=== PATIENT | female | born 1980 | race Caucasian/White ===

== ENCOUNTER 2020-07-03 22:23 | Emergency (ER) | payer OTHER ==
--- NOTE | 2020-07-04 00:03 | ER ---
Nurse's Notes [facility] Name: Pam Restrepo Age: 39 yrs Sex: Female : 1980 Arrival Date: 07/03/2020 Time: 22:25 Bed Waiting Private MD: Diagnosis: Presentation: 07/03 22:42 Chief complaint: Patient states: RLQ abdominal pain that began suddenly this afternoon, lp1 intermittent; Denies pain with urination. Initial Sepsis Screen: Does the patient meet any 2 criteria? No. Patient's initial sepsis screen is negative. Does the patient have a suspected source of infection? No. Patient's initial sepsis screen is negative. Risk Assessment: Do you want to hurt yourself or someone else? Patient reports no desire to harm self or others. 22:42 Method Of Arrival: Ambulatory lp1 22:42 Acuity: KRISTEN 3 lp1 22:44 Coronavirus screen: Client denies travel out of the [place] in the last 14 days. At this lp1 time, the client does not indicate any symptoms associated with coronavirus-19. Ebola Screen: No symptoms or risks identified at this time. Onset of symptoms was July 03, 2020 at 14:00. 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 - Social history:: Smoking status: Patient reports the use of cigarette tobacco products, smokes one-half pack cigarettes per day. Screenin:44 Abuse screen: Denies threats or abuse. Denies injuries from another. Nutritional lp1 screening: No deficits noted. Tuberculosis screening: No symptoms or risk factors identified. Vital Signs: 22:44 BP 173 / 124; Pulse 18; Resp 18; Temp 98.9(O); Pulse Ox 100% on R/A; Weight 79.38 kg lp1 (R); Height 5 ft. 8 in. (172.72 cm); Pain 8/10; 22:44 Body Mass Index 26.61 (79.38 kg, 172.72 cm) lp1 ED Course: 22:25 Patient arrived in ED. as 22:43 Triage completed. lp1 23:20 Patient's name was called from ER lobby. No response. lp1 07/04 00:01 Patient's name was called from ER lobby. Unable to locate patient. Will disposition as lp1 left without being seen by a provider. Administered Medications: No medications were administered Outcome: 00:02 Patient left the ED. lp1 Signatures: Jie Song Laura RN RN lp1 Corrections: (The following items were deleted from the chart) 07/03 23:28 23:20 Patient's name was called from ER lobby. Unable to locate patient. Will lp1 disposition as left without being seen by a provider. lp1
[2020-07-04 00:24] VITALS: BP 173/124; TEMP 98.9; O2SAT 100
== END 2020-07-04 00:02 | disposition left against medical advice (07) ==
LOC: ER 22:23
DX: Z53.21 Procedure and treatment not carried out due to patient leaving prior to being seen by health care provider (principal)
CPT/HCPCS: 99281

== ENCOUNTER 2021-04-12 08:24 | Emergency (ER) | payer OTHER ==
--- NOTE | 2021-04-12 09:57 | RAD REPORT ---
EXAM DESCRIPTION: RAD - Scapula Left - 04/12/2021 9:42 am CLINICAL HISTORY: PAIN, fall, shoulder and scapula pain is COMPARISON: Shoulder Left 2 View dated 04/12/2021 FINDINGS: No scapula fracture identifiable. No dislocation of the humeral head. No rib or upper lung parenchymal abnormality seen. IMPRESSION: Unremarkable left scapula exam
--- NOTE | 2021-04-12 09:58 | RAD REPORT ---
EXAM DESCRIPTION: RAD - Wrist Left 2 View - 04/12/2021 9:42 am CLINICAL HISTORY: Slip and fall, wrist pain COMPARISON: None. FINDINGS: Fracture of the distal radius is present without significant angulation deformity. No ulna fracture seen. There is no dislocation or periosteal reaction noted. No other significant bony finding. No foreign b omar or other soft tissue abnormality. IMPRESSION: Buckle fracture distal left radius.
--- NOTE | 2021-04-12 09:58 | RAD REPORT ---
EXAM DESCRIPTION: RAD - Elbow Left 3 View - 04/12/2021 9:42 am CLINICAL HISTORY: PAIN, slip and fall COMPARISON: None. FINDINGS: No fracture is identified and no elevated posterior fat pad. There is no dislocation or pe riosteal reaction noted. No foreign body or other soft tissue abnormality. IMPRESSION: Negative left elbow examination.
--- NOTE | 2021-04-12 10:01 | RAD REPORT ---
EXAM DESCRIPTION: RAD - Femur Left - 04/12/2021 9:43 am CLINICAL HISTORY: PAIN, slip and fall COMPARISON: None. FINDINGS: No fracture is identified. There is no dislocation or periosteal reaction noted. No acute or suspicious bony finding. No air or foreign body in the soft tissues. IMPRESSION: Negative left femur examination.
--- NOTE | 2021-04-12 10:01 | RAD REPORT ---
EXAM DESCRIPTION: RAD - Pelvis - 04/12/2021 9:42 am CLINICAL HISTORY: BLUNT TRAUMA COMPARISON: No comparisonsNone. TECHNIQUE: AP imaging of the pelvis was obtained. FINDINGS: No fracture of the bony pelvis. No fracture, dislocation or other acute hip joint finding. No significant SI joint findings. Mild degenerative change present at the pubic symphysis. No soft tissue abnormality. IMPRESSION: Negative pelvis for acute or significant findings.
--- NOTE | 2021-04-12 10:04 | RAD REPORT ---
EXAM DESCRIPTION: RAD - Thoracic Spine Ap/Lat - 04/12/2021 9:42 am CLINICAL HISTORY: PAIN, slip and fall with COMPARISON: No comparisons FINDINGS: AP & lateral views of the thoracic spine were obtained. There is subtle height loss along the right lateral aspect of the T9 body. Thoracic vertebrae are oth erwise normal in height. No alignment abnormality or subluxation finding. No destructive process seen . No disc space narrowing. No paraspinal masses are identified. Mild endplate spurring changes are present in the upper and mid portions of the thoracic spine. IMPRESSION: Subtle or minimal height loss along the right lateral margin of the T9 body. Correlation is needed with any pain symptoms in this region. Minimal compression fracture is possible though findings may still be within normal range for this patient.
--- NOTE | 2021-04-12 10:18 | RAD REPORT ---
EXAM DESCRIPTION: RAD - Shoulder Left 2 View - 04/12/2021 9:42 am CLINICAL HISTORY: PAIN, slip and fall COMPARISON: No comparisons TECHNIQUE: Internal and external rotation views of the left shoulder were obtained. FINDINGS: There is no fracture or dislocation. AC joint is normal in appearance. No acute or suspici ous findings. IMPRESSION: Negative two-view left shoulder examination for acute findings.
--- NOTE | 2021-04-12 10:51 | EDPHYS ---
Physician Documentation [facility] Name: Pam Restrepo Age: 40 yrs Sex: Female : 1980 Arrival Date: 04/12/2021 Time: 08:30 Bed 16 Private MD: ED Physician Vignesh Moreno HPI: 04/12 09:09 This 40 yrs old Female presents to ER via Ambulatory with complaints of Fall rn Injury, Arm Pain, left side pain. 09:09 Details of fall: The patient fell from an upright position, while standing. Onset: The rn symptoms/episode began/occurred just prior to arrival. Associated injuries: The patient sustained upper back injury, Left arm pain, left leg pain, shoulder pain, scapula pain, mid back pain.. Severity of symptoms: At their worst the symptoms were mild, in the emergency department the symptoms are unchanged. The patient has not experienced similar symptoms in the past. Reports got out of SUV, slipped on water, landed on right side, reports pain to left arm/left leg/left buttocks/mid back/left shoulder blade/left elbow. Doesn't feel like anything broken but not sure so came for eval. . 09:09 Did not hit head or LOC.. 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 - Social history:: Smoking status: Patient reports the use of cigarette tobacco products, smokes one-half pack cigarettes per day. - Family history:: not pertinent. - Hospitalizations: : No recent hospitalization is reported. ROS: 09:09 Constitutional: Negative for fever, chills, and weight loss, Eyes: Negative for injury, rn pain, redness, and discharge, Neck: Negative for injury, pain, and swelling, Cardiovascular: Negative for chest pain, palpitations, and edema, Respiratory: Negative for shortness of breath, cough, wheezing, and pleuritic chest pain, Abdomen/GI: Negative for abdominal pain, nausea, vomiting, diarrhea, and constipation, Back: + mid back pain MS/Extremity: + left arm and leg pain Skin: Negative for injury, rash, and discoloration, Neuro: Negative for headache, weakness, numbness, tingling, and seizure. Exam: 09:09 Constitutional: This is a well developed, well nourished patient who is awake, alert, rn and in no acute distress. Ambulatory to room without difficulty. Head/Face: Normocephalic, atraumatic. Neck: No midline cervical tenderness Chest/axilla: Nontender with no deformity. Cardiovascular: Regular rate and rhythm. No pulse deficits. Respiratory: No increased work of breathing, no retractions or nasal flaring. Back: + mid thoracic perispinal tenderness, no stepoff Skin: Warm, dry with normal turgor. Normal color with no rashes, no lesions, and no evidence of cellulitis. MS/ Extremity: Pulses equal, no cyanosis. Neurovascular intact. Full, normal range of motion. Equal circumference. Mild painful ROM left elbow, + tenderness left scapula without crepitus or mobile segments. Neuro: Awake and alert, GCS 15, oriented to person, place, time, and situation. Cranial nerves II-XII grossly intact. Motor strength 5/5 in all extremities. Sensory grossly intact. Cerebellar exam normal. Normal gait. Vital Signs: 08:38 BP 175 / 109; Pulse 113; Resp 20 S; Temp 98.7(O); Pulse Ox 99% on R/A; Weight 86.18 kg aa5 (R); Height 5 ft. 8 in. (172.72 cm) (R); 08:38 Body Mass Index 28.89 (86.18 kg, 172.72 cm) aa5 MDM: 08:42 Patient medically screened. rn 10:47 Differential diagnosis: contusion, fracture, multiple trauma, sprain, strain. Data rn reviewed: vital signs, nurses notes, radiologic studies, plain films, and as a result, I will discharge patient. Counseling: I had a detailed discussion with the patient and/or guardian regarding: the historical points, exam findings, and any diagnostic results supporting the discharge/admit diagnosis, radiology results, the need for outpatient follow up, to return to the emergency department if symptoms worsen or persist or if there are any questions or concerns that arise at home. Response to treatment: the patient's symptoms have mildly improved after treatment, and as a result, I will discharge patient. Special discussion: I discussed with the patient/guardian in detail that at this point there is no indication for admission to the hospital. It is understood, however, that if the symptoms persist or worsen the patient needs to return immediately for re-evaluation. Based on the history and exam findings, there is no indication for further emergent testing or inpatient evaluation. I discussed with the patient/guardian the need to see the orthopedic surgeon for further evaluation of the symptoms. ED course: Xrays show possible buckle fracture distal left radius and possible slight compression fracture T9, otherwise rest of plain films negative, both non-operative, will place in stiff wrist brace for buckle fracture, and recommend ortho f/u.. 04/12 08:51 Order name: XRAY Pelvis rn 04/12 08:51 Order name: XRAY Femur LEFT rn 04/12 08:51 Order name: XRAY Elbow LEFT 3 view rn 04/12 08:51 Order name: XRAY Wrist LEFT 2 view rn 04/12 08:51 Order name: XRAY Scapula LEFT rn 04/12 08:51 Order name: XRAY Shoulder LEFT 2 view rn 04/12 08:51 Order name: XRAY Thoracic Spine (Ap/lat) rn 04/12 09:58 Order name: RAD; Complete Time: 10:43 EDMS 04/12 09:59 Order name: RAD; Complete Time: 10:43 EDMS 04/12 09:59 Order name: RAD; Complete Time: 10:43 EDMS 04/12 10:01 Order name: RAD; Complete Time: 10:43 EDMS 04/12 10:02 Order name: RAD; Complete Time: 10:43 EDMS 04/12 10:04 Order name: RAD; Complete Time: 10:43 EDMS 04/12 10:19 Order name: RAD; Complete Time: 10:43 EDMS 04/12 10:51 Order name: Wrist Splint: velcro wrist brace - left; Complete Time: 10:53 rn Administered Medications: No medications were administered Disposition: 04/12/21 10:50 Discharged to Home. Impression: Acute, closed, distal radius buckle fracture - left, Wedge compression fracture of T9-T10 vertebra. - Condition is Stable. - Discharge Instructions: Spinal Compression Fracture, Wrist Fracture Treated With Immobilization. - Medication Reconciliation Form, Thank You Letter, Antibiotic Education, Prescription Opioid Use form. - Follow up: Mal Anders MD; When: As needed; Reason: Recheck today's complaints, Re-evaluation by your physician. - Problem is new. - Symptoms have improved. Signatures: Dispatcher [employer] EDVignesh Melgar MD MD rn Calderon, Audri, RN RN aa5 Corrections: (The following items were deleted from the chart) 11:12 10:50 04/12/2021 10:50 Discharged to Home. Impression: Acute, closed, distal radius aa5 buckle fracture - left; Wedge compression fracture of T9-T10 vertebra. Condition is Stable. Forms are Medication Reconciliation Form, Thank You Letter, Antibiotic Education, Prescription Opioid Use. Follow up: Mal Anders; When: As needed; Reason: Recheck today's complaints, Re-evaluation by your physician. Problem is new. Symptoms have improved. rn
--- NOTE | 2021-04-12 10:51 | ER ---
Nurse's Notes [facility] Name: Pam Restrepo Age: 40 yrs Sex: Female : 1980 Arrival Date: 04/12/2021 Time: 08:30 Bed 16 Private MD: Diagnosis: Acute, closed, distal radius buckle fracture - left;Wedge compression fracture of T9-T10 vertebra Presentation: 04/12 08:38 Chief complaint: Patient states: "I was getting out of my car and I slipped and fell aa5 right onto my left side. Pt c/o pain to left arm, left knee, and left buttocks. Coronavirus screen: At this time, the client does not indicate any symptoms associated with coronavirus-19. Ebola Screen: Patient negative for fever greater than or equal to 101.5 degrees Fahrenheit, and additional compatible Ebola Virus Disease symptoms. Initial Sepsis Screen: Does the patient meet any 2 criteria? No. Patient's initial sepsis screen is negative. Initial Sepsis Screen: Does the patient meet any 2 criteria? HR > 90 bpm. Does the patient have a suspected source of infection? No. Patient's initial sepsis screen is negative. Risk Assessment: Do you want to hurt yourself or someone else? Patient reports no desire to harm self or others. Onset of symptoms was April 12, 2021. 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 - Social history:: Smoking status: Patient reports the use of cigarette tobacco products, smokes one-half pack cigarettes per day. - Family history:: not pertinent. - Hospitalizations: : No recent hospitalization is reported. Screenin:40 Abuse screen: Denies threats or abuse. Nutritional screening: No deficits noted. aa5 Tuberculosis screening: No symptoms or risk factors identified. Fall Risk None identified. Assessment: 08:41 General: Appears uncomfortable, Behavior is calm, cooperative. Pain: Complains of pain aa5 in left arm, left buttocks, and left knee Pain currently is 8 out of 10 on a pain scale. Quality of pain is described as aching, sharp, shooting, Pain began post fall Is continuous, Aggravated by repositioning. Neuro: Level of Consciousness is awake, alert, obeys commands, Oriented to person, place, time, situation. Cardiovascular: Patient's skin is warm and dry. Respiratory: Airway is patent Respiratory effort is even, unlabored, Respiratory pattern is regular, symmetrical. GI: No signs and/or symptoms were reported involving the gastrointestinal system. : No signs and/or symptoms were reported regarding the genitourinary system. EENT: No signs and/or symptoms were reported regarding the EENT system. Derm: Skin is pink, warm \\T\\ dry. Musculoskeletal: Reports pain in left arm and left knee. 11:10 Reassessment: Patient is alert, oriented x 3, equal unlabored respirations, skin aa5 warm/dry/pink. Vital Signs: 08:38 BP 175 / 109; Pulse 113; Resp 20 S; Temp 98.7(O); Pulse Ox 99% on R/A; Weight 86.18 kg aa5 (R); Height 5 ft. 8 in. (172.72 cm) (R); 08:38 Body Mass Index 28.89 (86.18 kg, 172.72 cm) aa5 ED Course: 08:30 Patient arrived in ED. am2 08:38 Arm band placed on. aa5 08:38 Patient has correct armband on for positive identification. aa5 08:39 Triage completed. aa5 08:41 Milagro Bullock, MAURICIO is Primary Nurse. aa5 08:42 Vignesh Moreno MD is Attending Physician. rn 10:49 Mal Anders MD is Referral Physician. rn 10:53 Velcro wrist splint applied to left wrist. mt 11:10 No provider procedures requiring assistance completed. Patient did not have IV access aa5 during this emergency room visit. Administered Medications: No medications were administered Outcome: 10:50 Discharge ordered by MD. rn 11:10 Discharged to home ambulatory. aa5 11:10 Condition: stable 11:10 Discharge instructions given to patient, Instructed on discharge instructions, follow up and referral plans. medication usage, Demonstrated understanding of instructions, follow-up care. 11:12 Patient left the ED. aa5 Signatures: Vignesh Moreno MD MD rn Milagro Bullock RN RN aa5 Helga Kauffman Moriah nm
[2021-04-12 11:19] VITALS: BP 175/109; TEMP 98.7; O2SAT 99
== END 2021-04-12 11:12 | disposition home or self-care (01) ==
LOC: ER 08:24
PROC: 2W3DX1Z Immobilization of Left Lower Arm using Splint (ICD-10-PCS; principal; 2021-04-12)
DX: S52.522A Torus fracture of lower end of left radius, initial encounter for closed fracture (principal); S22.070A Wedge compression fracture of T9-T10 vertebra, initial encounter for closed fracture; F17.210 Nicotine dependence, cigarettes, uncomplicated; W01.0XXA Fall on same level from slipping, tripping and stumbling without subsequent striking against object, initial encounter; Y93.89 Activity, other specified
CPT/HCPCS: 72070; 72170; 73010; 99283

== ENCOUNTER 2021-06-27 10:43 | Emergency (ER) | payer OTHER ==
--- OUTSIDE RECORDS SUMMARY | 2021-06-27 10:52 | XMS REPORT | Continuity of Care Document ---
:1980 Author Organization [facility] t Address [address] [place] [address] Care Team Providers Name Role Phone Maurice Burden Attending Clinician Problems This patient has no known problems. Allergies, Adverse Reactions, Alerts This patient has no known allergies or adverse reactions. Medications This patient has no known medications. Procedures This patient has no known procedures. Encounters Start End Encounter Admission Attending Care Care Encounter Source Date/Time Date/Time Type Type Clinicians Facility Department ID 2021-04-21 2021-04-21 [facility] [id number] 09:56:50 23:59:00 Encounter Bernardo Decker [id number] [place] [id number] [place] [id number] 2021-04-21 2021-04-21 Office [facility] [id number] 08:27:38 08:42:38 Visit [facility] [id number] Surgical [id number] [facility] [id number] [place] Results This patient has no known results.
--- NOTE | 2021-06-27 11:41 | ER ---
Nurse's Notes [facility] Name: Pam Restrepo Age: 40 yrs Sex: Female : 1980 Arrival Date: 06/27/2021 Time: 10:46 Bed Waiting Private MD: Diagnosis: ED Course: 06/27 10:46 Patient arrived in ED. mr Administered Medications: No medications were administered Outcome: 11:40 Patient left the ED. iw Signatures: Myrtle Gilmore Irene, RN RN iw
== END 2021-06-27 11:40 | disposition left against medical advice (07) ==
LOC: ER 10:43
DX: Z02.9 Encounter for administrative examinations, unspecified (principal)

== ENCOUNTER 2021-08-13 15:51 | Emergency (ER) | payer OTHER ==
[2021-08-13 16:43] LABS: Urine Blood Negative (Negative); Urine Glucose Negative (Negative); Urine Protein 1+ (Negative); Urine Specific Gravity >=1.030 (1.005-1.030); Urine pH 5.5 (5.0-7.0)
[2021-08-13] MEDS ORDERED: MORPHINE 4 MG/ML SYR ONE (16:51)
[2021-08-13] MEDS ORDERED: ONDANSETRON 4 MG/2 ML VIAL ONE (16:51)
[2021-08-13] MEDS ORDERED: NA CHLORIDE 0.9% 1,000 ML ONE (16:51)
[2021-08-13 17:08] LABS: Absolute Lymphocytes (CBC) 1.3 K/uL (0.7-4.9); Basophils % 2.1 % (0-1.3); Hematocrit 37.8 % (36.0-45.0); Lymphocytes % 35.6 % (15.3-44.8); MPV 7.1 fL (7.6-11.3); RBC Red Blood Cell Count 3.99 M/uL (3.86-4.86)
[2021-08-13 17:23] LABS: Albumin 4.2 g/dL (3.4-5.0); Bilirubin Direct 0.2 mg/dL (0-0.2); Bilirubin Total 0.6 mg/dL (0.2-1.0); Potassium 4.1 mmol/L (3.5-5.1)
--- NOTE | 2021-08-13 17:31 | RAD REPORT ---
EXAM DESCRIPTION: CT - Abdomen Pelvis W Contrast - 08/13/2021 5:12 pm CLINICAL HISTORY: Abdominal pain COMPARISON: none. TECHNIQUE: Computed axial tomography of the abdomen pelvis was obtained. 100 cc Isovue-300 was admin istered intravenously. Oral contrast was not requested which limits evaluation of bowel. All CT scans are performed using dose optimization technique as appropriate and may include automated exposure control or mA/KV adjustment according to patient size. FINDINGS: Fatty liver. 13 millimeter enhancing lesion anterior segment right lobe. A moderate hiatal hernia. Wall of the distal stomach appears thickened. Spleen, pancreas, adrenal and kidneys appear unremarkable. There is no evidence of diverticulitis. No adnexal mass IMPRESSION: Fatty liver 13 millimeter hepatic lesion it is nonspecific. Nonemergent liver ultrasound recommended for further evaluation Apparent thickening of the wall of the distal stomach may be secondary to incomplete distention or pa thology such as inflammation
--- NOTE | 2021-08-13 18:02 | EDPHYS ---
Physician Documentation [facility] Name: aPm Restrepo Age: 40 yrs Sex: Female : 1980 Arrival Date: 08/13/2021 Time: 15:55 Bed 15 Private MD: Kirk [facility] ED Physician Justo Lay HPI: 08/13 16:44 This 40 yrs old Female presents to ER via Ambulatory with complaints of kb Vomiting - blood. 16:44 The patient presents to the emergency department with nausea, vomiting, abdominal pain. kb Onset: The symptoms/episode began/occurred 1 month(s) ago, and became worse today. Possible causes: unknown. The symptoms are aggravated by nothing. The symptoms are alleviated by nothing. Associated signs and symptoms: Pertinent positives: abdominal pain, GI bleeding, nausea, vomiting. Severity of symptoms: At their worst the symptoms were moderate in the emergency department the symptoms are unchanged. The patient has not experienced similar symptoms in the past. The patient has been recently seen by a physician: the patient's primary care provider. Pt reports she has had vomiting for over a month. States there was blood in it today which prompted her ER visit. States she has also had blood in her stool for about [address] Bradley for this and is supposed to follow up with GI for upper GI, but hasn't been able to schedule that yet. States she used to drink 1 handle of rum every 2 days, now a handle lasts 4-5 days. States "I drink so I don't go through withdrawals." Pt hasn't had this problem in the past. Historical: - Allergies: 15:58 No Known Allergies; aa5 - Home Meds: 15:58 Cymbalta Oral [Active]; aa5 - PMHx: 15:58 Acid Reflux; Anxiety; aa5 - PSHx: 15:58 Appendectomy; aa5 - Immunization history:: Client reports receiving the 2nd dose of the Covid vaccine. - Social history:: Smoking status: Patient reports the use of cigarette tobacco products, 1-2 cigarette . ROS: 16:43 Cardiovascular: Negative for chest pain, palpitations, and edema. kb 16:43 Constitutional: Positive for malaise. 16:43 Abdomen/GI: Positive for abdominal pain, nausea and vomiting, hematemesis, rectal bleeding. 16:43 All other systems are negative. Exam: 16:43 Constitutional: This is a well developed, well nourished patient who is awake, alert, kb and in no acute distress. Head/Face: Normocephalic, atraumatic. ENT: Moist Mucous membranes Cardiovascular: Regular rate and rhythm with a normal S1 and S2. No gallops, murmurs, or rubs. No pulse deficits. Respiratory: Respirations even and unlabored. No increased work of breathing, no retractions or nasal flaring. Skin: Warm, dry with normal turgor. Normal color. MS/ Extremity: Pulses equal, no cyanosis. Neurovascular intact. Full, normal range of motion. Neuro: Awake and alert, GCS 15, oriented to person, place, time, and situation. Moves all extremities. Normal gait. Psych: Awake, alert, with orientation to person, place and time. Behavior, mood, and affect are within normal limits. 16:43 Abdomen/GI: Inspection: abdomen appears normal, Palpation: soft, in all quadrants, mild abdominal tenderness, in the left upper quadrant, moderate abdominal tenderness, in the right lower quadrant. Vital Signs: 16:01 BP 142 / 110; Pulse 116; Resp 16 S; Temp 97.0(TE); Pulse Ox 97% on R/A; Weight 86.18 kg aa5 (R); Height 5 ft. 7 in. (170.18 cm) (R); 16:18 BP 134 / 97 Supine; Pulse 103; Resp 16; Pulse Ox 97% ; bp 16:20 BP 135 / 108 Sitting; Pulse 100; Resp 16; Pulse Ox 100% ; bp 16:22 BP 122 / 93 Standing; Pulse 109; Resp 17; Pulse Ox 99% ; bp 17:20 BP 151 / 104; Pulse 100; Resp 17; Pulse Ox 99% ; bp 16:01 Body Mass Index 29.76 (86.18 kg, 170.18 cm) aa5 MDM: 16:03 Patient medically screened. kb 16:42 Data reviewed: vital signs, nurses notes. Data interpreted: Pulse oximetry: on room air kb is 97 %. Interpretation: normal. 17:59 Counseling: I had a detailed discussion with the patient and/or guardian regarding: the kb historical points, exam findings, and any diagnostic results supporting the discharge/admit diagnosis, lab results, radiology results, the need for outpatient follow up, a obiee consultant, to return to the emergency department if symptoms worsen or persist or if there are any questions or concerns that arise at home. ED course: Discussed diagnostics with pt and mother. Will call Dr Munoz's office for follow up on Saturday. Will return for worsening symptoms. 08/13 16:03 Order name: Basic Metabolic Panel; Complete Time: 17:24 kb 08/13 16:03 Order name: CBC with Diff kb 08/13 16:03 Order name: Hepatic Function; Complete Time: 17:24 kb 08/13 16:03 Order name: Lipase; Complete Time: 17:24 kb 08/13 16:11 Order name: CT Abd/Pelvis - IV Contrast Only; Complete Time: 17:44 kb 08/13 16:43 Order name: Urine Dipstick-Ancillary; Complete Time: 16:46 EDMS 08/13 16:43 Order name: Urine --Ancillary (enter results) eb 08/13 16:44 Order name: Urine --Ancillary; Complete Time: 16:56 EDMS 08/13 16:03 Order name: IV Saline Lock; Complete Time: 17:23 kb 08/13 16:03 Order name: Labs collected and sent; Complete Time: 17:23 kb 08/13 16:11 Order name: Orthostatics; Complete Time: 16:57 kb Administered Medications: 16:45 Drug: ProTONIX (pantoprazole) 40 mg Route: IVP; Site: right forearm; bp 17:24 Follow up: Response: No adverse reaction bp 16:50 Drug: NS 0.9% 1000 ml Route: IV; Rate: 1000 ml; Site: right forearm; bp 18:25 Follow up: IV Status: Completed infusion; IV Intake: 1000ml bp 16:50 Drug: Zofran (Ondansetron) 4 mg Route: IVP; Site: right forearm; bp 17:23 Follow up: Response: No adverse reaction bp 16:50 Drug: morphine 4 mg Route: IVP; Site: right forearm; bp 17:22 Follow up: Response: Pain is decreased bp Disposition: 08/14 10:02 Co-signature as Attending Physician, Justo Lay MD I agree with the assessment and flash plan of care. Disposition Summary: 08/13/21 18:01 Discharge Ordered Location: Home kb Condition: Stable kb Diagnosis - Abdominal pain, Generalized kb - Nausea with vomiting, unspecified kb - Abnormal results of liver function studies kb - Fatty (change of) liver, not elsewhere classified kb Followup: kb - With: Emergency Department - When: As needed - Reason: Worsening of condition Followup: kb - With: James Munoz MD - When: 1 - 2 days - Reason: Recheck today's complaints Discharge Instructions: - Discharge Summary Sheet kb - Nausea and Vomiting, Adult, [id number] kb - Abdominal Pain, Adult, [id number] kb - Fatty Liver Disease kb Forms: - Medication Reconciliation Form kb - Thank You Letter kb - Antibiotic Education kb - Prescription Opioid Use kb Prescriptions: - Protonix 40 mg Oral Tablet - take 1 tablet by ORAL route once daily; 30 tablet; Refills: 0, Product kb Selection Permitted - Zofran 4 mg Oral Tablet - take 1 tablet by ORAL route every 6 hours As needed; 20 tablet; Refills: 0, kb Product Selection Permitted Signatures: Dispatcher [employer] Abbie Tolliver, FACILITY ADMINISTRATOR-C FACILITY ADMINISTRATOR-Justo Stevenson MD MD cha Calderon, Audri, RN RN aa5 Eleuterio Ryan, RN RN bp Corrections: (The following items were deleted from the chart) 08/13 16:13 16:12 TYPE AND SCREEN+[id number].BRZ ordered. [facility]
--- NOTE | 2021-08-13 18:02 | ER ---
Nurse's Notes [facility] Name: Pam Restrepo Age: 40 yrs Sex: Female : 1980 Arrival Date: 08/13/2021 Time: 15:55 Bed 15 Private MD: Clyde Bradley Diagnosis: Abdominal pain, Generalized;Nausea with vomiting, unspecified;Abnormal results of liver function studies;Fatty (change of) liver, not elsewhere classified Presentation: 08/13 16:00 Chief complaint: Patient states: vomiting bright red blood, diarrhea, and headache that aa5 began yesterday. Coronavirus screen: At this time, the client does not indicate any symptoms associated with coronavirus-19. Ebola Screen: Patient negative for fever greater than or equal to 101.5 degrees Fahrenheit, and additional compatible Ebola Virus Disease symptoms. Initial Sepsis Screen: Does the patient meet any 2 criteria? HR > 90 bpm. Does the patient have a suspected source of infection? No. Patient's initial sepsis screen is negative. Risk Assessment: Do you want to hurt yourself or someone else? Patient reports no desire to harm self or others. Onset of symptoms was July 2021. 16:00 Method Of Arrival: Ambulatory aa5 16:00 Acuity: KRISTEN 3 aa5 Triage Assessment: 16:00 General: Appears distressed, uncomfortable, Behavior is cooperative, appropriate for bp age, anxious. Pain: Complains of pain in abdomen. EENT: No deficits noted. Neuro: No deficits noted. Cardiovascular: No deficits noted. Respiratory: No deficits noted. GI: Reports nausea, vomiting. : No signs and/or symptoms were reported regarding the genitourinary system. Derm: No deficits noted. Musculoskeletal: No deficits noted. Historical: - Allergies: 15:58 No Known Allergies; aa5 - Home Meds: 15:58 Cymbalta Oral [Active]; aa5 - PMHx: 15:58 Acid Reflux; Anxiety; aa5 - PSHx: 15:58 Appendectomy; aa5 - Immunization history:: Client reports receiving the 2nd dose of the Covid vaccine. - Social history:: Smoking status: Patient reports the use of cigarette tobacco products, 1-2 cigarette . Screenin:17 Abuse screen: Denies threats or abuse. Denies injuries from another. Nutritional bp screening: No deficits noted. Tuberculosis screening: No symptoms or risk factors identified. Fall Risk None identified. Assessment: 16:00 General: SEE TRIAGE NOTE. bp 17:17 Reassessment: PT RETURNED FROM CT. GI: Abdomen is non-distended. bp 18:23 Reassessment: PT D/C HOME AMBULATORY WITH FAMILY, DX WITH NONSPECIFIC ABDOMINAL PAIN. bp Vital Signs: 16:01 BP 142 / 110; Pulse 116; Resp 16 S; Temp 97.0(TE); Pulse Ox 97% on R/A; Weight 86.18 kg aa5 (R); Height 5 ft. 7 in. (170.18 cm) (R); 16:18 BP 134 / 97 Supine; Pulse 103; Resp 16; Pulse Ox 97% ; bp 16:20 BP 135 / 108 Sitting; Pulse 100; Resp 16; Pulse Ox 100% ; bp 16:22 BP 122 / 93 Standing; Pulse 109; Resp 17; Pulse Ox 99% ; bp 17:20 BP 151 / 104; Pulse 100; Resp 17; Pulse Ox 99% ; bp 16:01 Body Mass Index 29.76 (86.18 kg, 170.18 cm) aa5 ED Course: 15:55 Patient arrived in ED. am2 15:55 Clyde Bradley, DO is Private Physician. am2 15:58 Arm band placed on. aa5 16:01 Triage completed. aa5 16:03 Abbie Varner FNP-C [facility]. kb 16:03 Justo Lay MD is Attending Physician. kb 16:13 Eleuterio Ryan, MAURICIO is Primary Nurse. bp 16:17 Patient has correct armband on for positive identification. Bed in low position. Call bp light in reach. Side rails up X2. 16:50 Inserted saline lock: 20 gauge in right forearm, using aseptic technique. Blood bp collected. 17:12 CT Abd/Pelvis - IV Contrast Only In Process Unspecified. EDMS 18:00 James Munoz MD is Referral Physician. kb 18:23 No provider procedures requiring assistance completed. IV discontinued, intact, bp bleeding controlled, No redness/swelling at site. Pressure dressing applied. Administered Medications: 16:45 Drug: ProTONIX (pantoprazole) 40 mg Route: IVP; Site: right forearm; bp 17:24 Follow up: Response: No adverse reaction bp 16:50 Drug: NS 0.9% 1000 ml Route: IV; Rate: 1000 ml; Site: right forearm; bp 18:25 Follow up: IV Status: Completed infusion; IV Intake: 1000ml bp 16:50 Drug: Zofran (Ondansetron) 4 mg Route: IVP; Site: right forearm; bp 17:23 Follow up: Response: No adverse reaction bp 16:50 Drug: morphine 4 mg Route: IVP; Site: right forearm; bp 17:22 Follow up: Response: Pain is decreased bp Intake: 18:25 IV: 1000ml; Total: 1000ml. bp Outcome: 18:01 Discharge ordered by . gemma 18:23 Discharged to home ambulatory, with family. bp 18:23 Condition: stable 18:23 Discharge instructions given to patient, Instructed on discharge instructions, follow up and referral plans. medication usage, Demonstrated understanding of instructions, follow-up care, medications, Prescriptions given X 2. 18:25 Patient left the ED. bp Signatures: Dispatcher [employer] EDMS Abbie Varner, WIL-C BD SPECIAL EDUCATION TEACHER-Milagro Pulido, RN RN erin5 Helga Kauffman am2 Eleuterio Ryan, RN RN bp
[2021-08-13 18:32] VITALS: TEMP 97
[2021-08-13 18:36] VITALS: O2SAT 99
[2021-08-13 18:37] VITALS: BP 151/104
[2021-08-13 19:38] LABS: Anisocytosis 2+; Blood Morphology Comment NOTED (NOT SEEN); Platelet Estimate ADEQ; Polychromasia 1+; White Blood Cell Scan OK (OK)
== END 2021-08-13 18:25 | disposition home or self-care (01) ==
LOC: ER 15:51
DX: R10.84 Generalized abdominal pain (principal); R94.5 Abnormal results of liver function studies; K76.0 Fatty (change of) liver, not elsewhere classified; F17.210 Nicotine dependence, cigarettes, uncomplicated
CPT/HCPCS: 96361; 85025; 80048; 36415; 81025; 82565; 80076; 81003; 83690; 74177; 96375; 96374; 99284; Q9967; J7030; J2405

== ENCOUNTER 2021-08-21 19:26 | Inpatient (IN) | payer OTHER ==
[2021-08-21 20:15] LABS: Absolute Lymphocytes (CBC) 1.2 K/uL (0.7-4.9); Basophils % 0.4 % (0-1.3); Hematocrit 35.9 % (36.0-45.0); MPV 7.8 fL (7.6-11.3); RBC Red Blood Cell Count 3.72 M/uL (3.86-4.86)
[2021-08-21 20:30] LABS: Albumin 3.9 g/dL (3.4-5.0); Bilirubin Direct 0.4 mg/dL (0-0.2); Bilirubin Total 0.8 mg/dL (0.2-1.0); Potassium 4.1 mmol/L (3.5-5.1); Protein, Total 7.3 g/dL (6.4-8.2)
[2021-08-21] MEDS ORDERED: DIAZEPAM 10 MG/2 ML INJ SYRINGE ONE (20:39)
[2021-08-21] MEDS ORDERED: THIAMINE 200 MG/2 ML INJ ONE (20:39)
[2021-08-21] MEDS ORDERED: ONDANSETRON 4 MG/2 ML VIAL ONE (20:39)
[2021-08-21] MEDS ORDERED: MULTIVITAMINS 10 ML VIAL (INJ) IV ONE (20:40)
[2021-08-21] MEDS ORDERED: PANTOPRAZOLE 40 MG INJ ONE (20:40)
[2021-08-21] MEDS ORDERED: FOLIC ACID 5 MG/ML VIAL ONE (20:42)
[2021-08-21] MEDS ORDERED: NA CHLORIDE 0.9% 2,000 ML ONE (20:42)
[2021-08-21 20:55] LABS: Anisocytosis 3+; Blood Morphology Comment NOTED (NOT SEEN); Macrocytosis 1+; Platelet Estimate ADEQ
--- NOTE | 2021-08-21 20:55 | RAD REPORT ---
EXAM DESCRIPTION: CTAbdomen Pelvis W Contrast - 08/21/2021 8:47 pm CLINICAL HISTORY: Abdominal pain. ABD PAIN COMPARISON: Abdomen Pelvis W Contrast dated 08/13/2021 TECHNIQUE: Biphasic CT imaging of the abdomen and pelvis was performed with 100 ml non-ionic IV cont rast. All CT scans are performed using dose optimization technique as appropriate and may include automated exposure control or mA/KV adjustment according to patient size. FINDINGS: The lung bases are clear.Moderate hiatal hernia. The liver demonstrates diffuse fatty infiltration. Spleen, pancreas, adrenal glands and kidneys are w ithin normal limits. No bowel obstruction, free air, free fluid or abscess. Moderate thickening and inflammation the trans verse colon and ascending colon is seen. Appendectomy. No evidence of significant lymphadenopathy. No suspicious bony findings. IMPRESSION: Moderate inflammatory changes involve transverse and ascending colon. This is compatible with moderate colitis. Diffuse fatty liver.
[2021-08-21] MEDS ORDERED: HYDROMORPHONE HCL 1 MG/ML INJ ONE (21:24)
[2021-08-21] MEDS ORDERED: METRONIDAZOLE 500mg IVPB 500 MG/100 ML BAG IV ONE (22:02)
[2021-08-21] MEDS ORDERED: CEFTRIAXONE 1000 MG/VIAL ONE (22:02)
--- NOTE | 2021-08-21 23:01 | ER ---
Nurse's Notes [facility] Name: Pam Restrepo Age: 40 yrs Sex: Female : 1980 Arrival Date: 08/21/2021 Time: 19:28 Bed 18 Private MD: Diagnosis: Tachycardia, unspecified;Alcohol dependence with withdrawal, uncomplicated;Infectious gastroenteritis and colitis, unspecified;Nausea with vomiting, unspecified Presentation: 08/21 19:46 Chief complaint: Patient states: Pt states she has had Right upper and lower quad wg abdominal pain for the past 2 weeks. Pt state she has had N/V/D for the past 2 weeks as well. Pt states she noticed coffee ground color in her stool over the past couple days. Pt states she is a heavy drinker and drinks 24oz of liquor daily. Coronavirus screen: Vaccine status: Patient reports receiving the 2nd dose of the covid vaccine. Date March 2021. Ebola Screen: Patient negative for fever greater than or equal to 101.5 degrees Fahrenheit, and additional compatible Ebola Virus Disease symptoms Patient denies exposure to infectious person. Patient denies travel to an Ebola-affected area in the 21 days before illness onset. No symptoms or risks identified at this time. Initial Sepsis Screen: Does the patient meet any 2 criteria? No. Patient's initial sepsis screen is negative. Does the patient have a suspected source of infection? No. Patient's initial sepsis screen is negative. Risk Assessment: Do you want to hurt yourself or someone else? Patient reports no desire to harm self or others. Onset of symptoms was July 31, 2021. 19:46 Method Of Arrival: Ambulatory wg 19:46 Acuity: KRISTEN 3 wg Triage Assessment: 19:50 General: Appears uncomfortable, well groomed, Behavior is calm, cooperative, anxious. wg Pain: Complains of pain in Right upper and lower abd. GI: Reports lower abdominal pain, upper abdominal pain, diarrhea, bloody stool, intolerance of fluids, intolerance of food, nausea, vomiting. REPORTER: 19:50 LMP 07/20/2021 wg Historical: - Allergies: 19:50 No Known Allergies; wg - Home Meds: 19:50 Cymbalta Oral [Active]; Nexium Oral [Active]; wg - PMHx: 19:50 acid reflux; Anxiety; wg - Immunization history:: Adult Immunizations up to date. - Social history:: Smoking status: Patient reports the use of cigarette tobacco products, denies chronic smoking, but will smoke occasionally, Patient uses alcohol, on a daily basis. . - Family history:: not pertinent. Screenin:03 Abuse screen: Denies threats or abuse. Denies injuries from another. Nutritional bc5 screening: No deficits noted. Tuberculosis screening: No symptoms or risk factors identified. Fall Risk None identified. No fall in past 12 months (0 pts). No secondary diagnosis (0 pts). IV access (20 points). Ambulatory Aid- None/Bed Rest/Nurse Assist (0 pts). Gait- Normal/Bed Rest/Wheelchair (0 pts) Mental Status- Oriented to own ability (0 pts). Total Roberson Fall Scale indicates No Risk (0-24 pts). Assessment: 20:05 GI: Abdomen is round non-distended. 5 21:00 Reassessment: Pt returned from CT. c/o right side abdominal and hip pain. Provider 5 aware, orders to follow. 08/22 00:39 Reassessment: Initial CIWA score of 5. 5 Vital Signs: 08/21 19:46 BP 144 / 101; Pulse 130; Resp 18; Temp 98.7; Pulse Ox 100% on R/A; Weight 88.45 kg; wg Height 5 ft. 8 in. (172.72 cm); Pain 8/10; 21:01 BP 130 / 30; Pulse 106; Resp 17; Pulse Ox 100% on R/A; Pain 8/10; bc5 23:40 BP 129 / 92; Pulse 139; Resp 17; Pulse Ox 99% on R/A; Pain 7/10; bc5 08/22 01:00 BP 111 / 74; Pulse 130; Resp 16; Pulse Ox 100% on R/A; Pain 0/10; bc5 08/23 19:50 BP 118 / 81; Pulse 109; Resp 18; Temp 98.6; Pulse Ox 93% ; Pain 6/10; bs2 08/21 19:46 Body Mass Index 29.65 (88.45 kg, 172.72 cm) ED Course: 08/21 19:28 Patient arrived in ED. wm 19:50 Triage completed. wg 19:50 Arm band placed on right wrist. wg 19:55 Radha Salvador MD is Attending Physician. ma2 20:03 Arely Hoskins, MAURICIO is Primary Nurse. bc5 20:05 Patient has correct armband on for positive identification. Placed in gown. Bed in low bc5 position. Call light in reach. Side rails up X2. Adult w/ patient. 20:05 No provider procedures requiring assistance completed. Inserted saline lock: 20 gauge bc5 in left antecubital area, using aseptic technique. 20:37 CT Abd/Pelvis - IV Contrast Only Sent. ms4 20:48 CT Abd/Pelvis - IV Contrast Only In Process Unspecified. EDIN 08/22 00:09 John Moreno MD is Hospitalizing Provider. ma2 00:23 COVID-19 : Document "Date of Symptom Onset" if Symptomatic. Sent. [facility] 08/23 09:38 Rashida Junior, MAURICIO is Primary Nurse. es2 19:49 Patient admitted, IV remains in place. bs2 Administered Medications: 08/21 20:37 Drug: NS 0.9% 1000 ml Route: IV; Rate: 1 bolus; Site: left antecubital; wy4 08/22 00:41 Follow up: IV Status: Completed infusion [facility] 08/21 20:37 Drug: Zofran (Ondansetron) 4 mg Route: IVP; Site: left antecubital; wy4 08/22 00:42 Follow up: Response: No adverse reaction [facility] 08/21 20:37 Drug: Pantoprazole 80 mg Route: IVP; Site: left antecubital; wy4 08/22 00:42 Follow up: Response: No adverse reaction [facility] 08/21 20:37 Drug: Banana Bag - (NS 0.9% 1000 ml, foLIC Acid 1 mg, Thiamine 100 mg, Multivitamin 1 ms4 amp) Route: IV; Rate: calculated rate; Site: left antecubital; 08/22 01:08 Follow up: IV Status: Completed infusion [facility] 08/21 20:37 Drug: Valium (diazepam) 2 mg Route: IVP; Site: left antecubital; wy4 08/22 00:42 Follow up: Response: No adverse reaction [facility] 08/21 21:06 Drug: Dilaudid (HYDROmorphone) 1 mg Route: IVP; Site: left antecubital; [facility] 08/22 00:42 Follow up: Response: No adverse reaction 5 08/21 21:43 Drug: Rocephin (cefTRIAXone) 1 grams Route: IV; Rate: calculated rate; Site: left ms4 antecubital; 08/22 00:43 Follow up: Response: No adverse reaction; IV Status: Completed infusion 5 00:00 Drug: Dilaudid (HYDROmorphone) 1 mg Route: IVP; Site: left antecubital; ms4 00:43 Follow up: Response: No adverse reaction 5 00:00 Drug: Ativan (LORazepam) 2 mg Route: IVP; Site: left antecubital; ms4 00:43 Follow up: Response: No adverse reaction 5 00:00 Drug: Phenergan (promethazine) 25 mg Route: IVP; Site: left antecubital; ms4 00:43 Follow up: Response: No adverse reaction 00:00 Drug: NS 0.9% 1000 ml Route: IV; Rate: 1 bolus; Site: left antecubital; ms4 01:08 Follow up: IV Status: Completed infusion 5 00:01 Drug: Flagyl (metroNIDAZOLE) 500 mg Volume: 100 ml; Route: IVPB; Rate: 200 ml/hr; ms4 Infused Over: 30 mins; Site: left antecubital; 01:08 Follow up: IV Status: Completed infusion 5 00:01 Drug: Bentyl (dicyclomine) 20 mg Route: IM; Site: right ventrogluteal; ms4 00:43 Follow up: Response: No adverse reaction 5 01:09 Drug: Ativan (LORazepam) 2 mg Route: IVP; Site: left antecubital; 5 Outcome: 08/21 23:01 Discharge ordered by . [facility] 08/22 00:10 Decision to Hospitalize by Provider. mn2 08/23 19:49 Admitted to Med/surg accompanied by tech, via stretcher, room 220, with chart, Report bs2 called to nurse for 220 Condition: stable Instructed on the need for admit. 19:51 Patient left the ED. bs2 Signatures: Dispatcher [employer] EDMS Radha Salvador MD MD ma2 Shanon Beauchamp Bridget RN RN bs2 Debbi Garvey RN RN ms4 Griselda Anglin, RN RN lh3 Rolf Gomez RN Arely Hoskins, RN RN bc5 Rashida Junior RN RN es2 Corrections: (The following items were deleted from the chart) 08/21 19:53 19:46 Chief complaint: Patient states: Pt states she has had Right upper and lower quad wg abdominal pain for the past 2 weeks. Pt state she has had N/V/D for the past 2 weeks as well. Pt states she noticed coffee ground color in her stool over the past couple days. 08/22 00:26 00:25 Patient is placed in psych hold 3 3
--- NOTE | 2021-08-21 23:02 | EDPHYS ---
Physician Documentation [facility] Name: Pam Restrepo Age: 40 yrs Sex: Female : 1980 Arrival Date: 08/21/2021 Time: 19:28 Bed 18 Private MD: ED Physician Radha Salvador HPI: 08/21 22:16 This 40 yrs old Female presents to ER via Ambulatory with complaints of ma2 Nausea/Vomiting/Diarrhea - Blood in vomit,liver issues. 22:16 The patient presents to the emergency department with nausea, vomiting. Onset: The ma2 symptoms/episode began/occurred suddenly, gradually, 6 day(s) ago. Associated signs and symptoms: Pertinent positives: Pertinent negatives: belching, dysuria, flatulence, hematuria. Severity of symptoms: At their worst the symptoms were moderate in the emergency department the symptoms are unchanged. The patient has not experienced similar symptoms in the past. 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 - Social history:: Smoking status: Patient reports the use of cigarette tobacco products, denies chronic smoking, but will smoke occasionally, Patient uses alcohol, on a daily basis. . - Family history:: not pertinent. ROS: 22:16 Constitutional: Negative for fever, chills, and weight loss. ma2 22:16 All other systems are negative. Exam: 22:16 Constitutional: This is a well developed, well nourished patient who is awake, alert, ma2 and in no acute distress. Eyes: Pupils equal round and reactive to light, extra-ocular motions intact. Lids and lashes normal. Conjunctiva and sclera are non-icteric and not injected. Cornea within normal limits. Periorbital areas with no swelling, redness, or edema. ENT: Nares patent. No nasal discharge, no septal abnormalities noted. Tympanic membranes are normal and external auditory canals are clear. Oropharynx with no redness, swelling, or masses, exudates, or evidence of obstruction, uvula midline. Mucous membranes moist. Neck: Trachea midline, no thyromegaly or masses palpated, and no cervical lymphadenopathy. Supple, full range of motion without nuchal rigidity, or vertebral point tenderness. No Meningismus. Chest/axilla: Normal chest wall appearance and motion. Nontender with no deformity. No lesions are appreciated. Cardiovascular: Regular rate and rhythm with a normal S1 and S2. No gallops, murmurs, or rubs. Normal PMI, no JVD. No pulse deficits. Respiratory: Lungs have equal breath sounds bilaterally, clear to auscultation and percussion. No rales, rhonchi or wheezes noted. No increased work of breathing, no retractions or nasal flaring. Abdomen/GI: Soft, non-tender, with normal bowel sounds. No distension or tympany. No guarding or rebound. No evidence of tenderness throughout. Back: No spinal tenderness. No costovertebral tenderness. Full range of motion. Skin: Warm, dry with normal turgor. Normal color with no rashes, no lesions, and no evidence of cellulitis. MS/ Extremity: Pulses equal, no cyanosis. Neurovascular intact. Full, normal range of motion. Neuro: Awake and alert, GCS 15, oriented to person, place, time, and situation. Cranial nerves II-XII grossly intact. Motor strength 5/5 in all extremities. Sensory grossly intact. Cerebellar exam normal. Normal gait. Vital Signs: 19:46 BP 144 / 101; Pulse 130; Resp 18; Temp 98.7; Pulse Ox 100% on R/A; Weight 88.45 kg; wg Height 5 ft. 8 in. (172.72 cm); Pain 8/10; 21:01 BP 130 / 30; Pulse 106; Resp 17; Pulse Ox 100% on R/A; Pain 8/10; bc5 23:40 BP 129 / 92; Pulse 139; Resp 17; Pulse Ox 99% on R/A; Pain 7/10; bc5 08/22 01:00 BP 111 / 74; Pulse 130; Resp 16; Pulse Ox 100% on R/A; Pain 0/10; bc5 08/23 19:50 BP 118 / 81; Pulse 109; Resp 18; Temp 98.6; Pulse Ox 93% ; Pain 6/10; bs2 08/21 19:46 Body Mass Index 29.65 (88.45 kg, 172.72 cm) wg MDM: 08/21 19:55 Patient medically screened. [facility] 22:16 Differential diagnosis: gastritis, diverticulitis, viral gastroenteritis, ma2 gastroenteritis. Data reviewed: vital signs, nurses notes, EMS record. 22:59 Counseling: I had a detailed discussion with the patient and/or guardian regarding: the pr2 historical points, exam findings, and any diagnostic results supporting the discharge/admit diagnosis, the presence of at least one elevated blood pressure reading (>120/80) during this emergency department visit, the need for outpatient follow up. Response to treatment: the patient's symptoms have markedly improved after treatment. 08/22 00:08 ED course: intractable pain vomiting and alcohol withdrawal. [facility] 08/21 19:54 Order name: Basic Metabolic Panel; Complete Time: 20:32 08/21 19:54 Order name: CBC with Diff; Complete Time: 20:57 08/21 19:54 Order name: Hepatic Function; Complete Time: 20:32 08/21 19:54 Order name: Lipase; Complete Time: 20:32 08/21 20:22 Order name: Manual Differential; Complete Time: 20:57 [facility] 08/22 00:15 Order name: COVID-19 : Document "Date of Symptom Onset" if Symptomatic. df1 08/22 01:46 Order name: SARS-COV-2 RT PCR [facility] 08/22 05:25 Order name: CBC with Automated Diff [facility] 08/22 06:00 Order name: Comprehensive Metabolic Panel [facility] 08/22 06:00 Order name: Phosphorus EDMS 08/22 06:00 Order name: Magnesium EDMS 08/22 06:00 Order name: Alcohol Serum/Plasma [facility] 08/22 08:53 Order name: Urine Dipstick-Ancillary [facility] 08/21 19:57 Order name: CT Abd/Pelvis - IV Contrast Only; Complete Time: 21:31 [facility] 08/22 09:05 Order name: Urine --Ancillary (enter results) bd 08/22 09:26 Order name: Urine --Ancillary EDMS 08/23 04:31 Order name: CBC with Automated Diff EDMS 08/23 04:41 Order name: Comprehensive Metabolic Panel EDMS 08/23 04:41 Order name: Phosphorus EDMS 08/23 04:41 Order name: Magnesium EDMS 08/23 07:52 Order name: CT [facility] 08/21 19:54 Order name: Urine Dipstick-Ancillary (obtain specimen) 08/21 19:54 Order name: IV Saline Lock; Complete Time: 20:30 wg 08/21 19:54 Order name: Labs collected and sent; Complete Time: 20:30 Administered Medications: 08/21 20:37 Drug: NS 0.9% 1000 ml Route: IV; Rate: 1 bolus; Site: left antecubital; md4 08/22 00:41 Follow up: IV Status: Completed infusion [facility] 08/21 20:37 Drug: Zofran (Ondansetron) 4 mg Route: IVP; Site: left antecubital; ms4 08/22 00:42 Follow up: Response: No adverse reaction 08/21 20:37 Drug: Pantoprazole 80 mg Route: IVP; Site: left antecubital; md4 08/22 00:42 Follow up: Response: No adverse reaction [facility] 08/21 20:37 Drug: Banana Bag - (NS 0.9% 1000 ml, foLIC Acid 1 mg, Thiamine 100 mg, Multivitamin 1 ms4 amp) Route: IV; Rate: calculated rate; Site: left antecubital; 08/22 01:08 Follow up: IV Status: Completed infusion 08/21 20:37 Drug: Valium (diazepam) 2 mg Route: IVP; Site: left antecubital; md4 08/22 00:42 Follow up: Response: No adverse reaction [facility] 08/21 21:06 Drug: Dilaudid (HYDROmorphone) 1 mg Route: IVP; Site: left antecubital; 08/22 00:42 Follow up: Response: No adverse reaction 08/21 21:43 Drug: Rocephin (cefTRIAXone) 1 grams Route: IV; Rate: calculated rate; Site: left ms4 antecubital; 08/22 00:43 Follow up: Response: No adverse reaction; IV Status: Completed infusion 00:00 Drug: Dilaudid (HYDROmorphone) 1 mg Route: IVP; Site: left antecubital; ms4 00:43 Follow up: Response: No adverse reaction 00:00 Drug: Ativan (LORazepam) 2 mg Route: IVP; Site: left antecubital; ms4 00:43 Follow up: Response: No adverse reaction bc5 00:00 Drug: Phenergan (promethazine) 25 mg Route: IVP; Site: left antecubital; ms4 00:43 Follow up: Response: No adverse reaction bc5 00:00 Drug: NS 0.9% 1000 ml Route: IV; Rate: 1 bolus; Site: left antecubital; ms4 01:08 Follow up: IV Status: Completed infusion bc5 00:01 Drug: Flagyl (metroNIDAZOLE) 500 mg Volume: 100 ml; Route: IVPB; Rate: 200 ml/hr; ms4 Infused Over: 30 mins; Site: left antecubital; 01:08 Follow up: IV Status: Completed infusion bc5 00:01 Drug: Bentyl (dicyclomine) 20 mg Route: IM; Site: right ventrogluteal; ms4 00:43 Follow up: Response: No adverse reaction bc5 01:09 Drug: Ativan (LORazepam) 2 mg Route: IVP; Site: left antecubital; bc5 Disposition Summary: 08/22/21 00:10 Hospitalization Ordered Hospitalization Status: Observation ma2 Provider: John Moreno Condition: Stable(08/22/21 00:10) ma2 Problem: new ma2 Symptoms: are unchanged ma2 Bed/Room Type: Standard ma2 Location: Telemetry/MedSurg (observation)(08/23/21 17:19) bd Room Assignment: 220(08/23/21 17:19) bd Diagnosis - Tachycardia, unspecified ma2 - Alcohol dependence with withdrawal, uncomplicated ma2 - Infectious gastroenteritis and colitis, unspecified ma2 - Nausea with vomiting, unspecified ma2 Forms: - Medication Reconciliation Form ma2 - SBAR form ma2 Signatures: Dispatcher [employer] EDShelli Krishnamurthy Martha, RN RN mw Mickail, Joel, PA PA jmm Attema, Lee, FNP-Aristides HEALYP-Maria Guadalupe1 Radha Salvador MD MD ma2 Debbi Garvey RN RN ms4 Rolf Gomez RN Arely Hoskins RN RN bc5 Corrections: (The following items were deleted from the chart) 00:08 08/21 23:01 Home ma2 ma2 08/22 00:08 08/21 23:01 Stable pr2 [facility] 08/22 00:08 08/21 23:01 Other specified noninfective gastroenteritis and colitis pr2 [facility] 08/22 00:08 08/21 23:01 Alcohol dependence pr2 [facility] 08/22 00:16 00:10 Telemetry/MedSurg (Inpatient) [facility] 00:16 00:10 pr2 mw 00:32 00:24 CORONAVIRUS ordered. EDMS EDMS 08/23 17:08/22 00:16 [facility] ER HOLD mw bd 08/23 17:08/22 00:16 ERHOLD- mw bd
[2021-08-21] MEDS ORDERED: HYDROMORPHONE HCL 2 MG/ML inj ONE (23:58)
[2021-08-21] MEDS ORDERED: DICYCLOMINE HCL 20 MG/2 ML AMP IM ONE (23:58)
[2021-08-22] MEDS ORDERED: LORazepam 2 MG/ML VIAL ONE ×6 (00:10→23:38)
[2021-08-22] MEDS ORDERED: PROMETHAZINE INJ 25 MG/ML AMP ONE (00:10)
[2021-08-22] MEDS ORDERED: NA CHLORIDE 0.9% 1,000 ML ONE ×3 (00:11→21:13)
[2021-08-22] MEDS ORDERED: NA CHLORIDE 0.9% 100 ML ONE ×3 (00:11→21:08)
--- NOTE | 2021-08-22 01:14 | P.HP ---
Certification for Inpatient Patient admitted to: Inpatient With expected LOS: >2 Midnights Patient will require the following post-hospital care: None Practitioner: I am a practitioner with admitting privileges, knowledge of patient current condition, hospital course, and medical plan of care. Services: Services provided to patient in accordance with Admission requirements found in Title 42 Section 412.3 of the Code of Federal Regulations <Temo Santa - Last Filed: 08/22/21 01:03> Patient History Date of Service: 08/22/21 Primary Care Provider: Dr. Bradley Reason for admission: Alcohol withdrawal, colitis, intractable vomiting History of Present Illness: 40-year-old female with history of GERD, anxiety, EtOH dependence presents emergency department for intractable nausea and vomiting. Patient reports has been feeling unwell over the course last 1 week, worse over the course of the last 3 to 4 days. Patient admits to drinking rum daily, reports she used to drink 1 handle over the course of last 2 days but over the course of the last month she has been drinking approximately 24 to 36 ounces on a daily basis, last drink was 08/21/2021 at 1300. Patient was evaluated in the emergency department labs were significant for sodium 136 chloride 97 GFR [address] abdomen pelvis demonstrates moderate inflammatory changes involving the transverse and ascending colon compatible with moderate colitis. ED provider attempted to hydrate patient, give antibiotics and discharged with patient has intractable vomiting and heart rate still in the 130s after 3 L of fluids. Patient does wish to stop drinking, ED provider wishes to admit for EtOH withdrawal, colitis, intractable nausea vomiting. - Past Medical/Surgical History -: Anxiety -: GERD -: Alcohol abuse -: Appendectomy Psychosocial/ Personal History: Patient lives at home with her family - Family History Family History: Reviewed- Non-Contributory - Social History Smoking Status: Never smoker Alcohol use: Yes CD- Drugs: No Caffeine use: No Place of Residence: Home <Temo Santa - Last Filed: 08/22/21 01:03> Date of Service: 08/22/21 <John Moreno - Last Filed: 08/22/21 14:50> Allergies No Known Allergies Allergy (Unverified 11/07/12 21:48) Review of Systems 10-point ROS is otherwise unremarkable General: Other (Anxiety) Gastrointestinal: Nausea, Vomiting, Abdominal Pain <Temo Sanat - Last Filed: 08/22/21 01:03> Physical Examination - Physical Exam General: Alert, In no apparent distress, Oriented x3, Other (Anxious) HEENT: Atraumatic, PERRLA, Mucous membr. moist/pink, EOMI, Sclerae nonicteric Neck: Supple, 2+ carotid pulse no bruit, No LAD, Without JVD or thyroid abnormality Respiratory: Clear to auscultation bilaterally, Normal air movement Cardiovascular: Regular rate/rhythm (Sinus tachycardia rate 130), Normal S1 S2 Capillary refill: <2 Seconds Gastrointestinal: Normal bowel sounds, No tenderness Musculoskeletal: No tenderness Integumentary: No rashes Neurological: Normal speech, Normal strength at 5/5 x4 extr, Normal tone, Normal affect Lymphatics: No axilla or inguinal lymphadenopathy - Studies Laboratory Data (last 24 hrs) 08/21/21 20:03: WBC 4.80 D, Hgb 12.0, Hct 35.9 L, Plt Count 207 08/21/21 20:03: Sodium 136, Potassium 4.1, BUN 6 L, Creatinine 0.88, Glucose 130 H, Total Bilirubin 0.8, AST 136 H, ALT 128 H, Alkaline Phosphatase 93, Lipase 139 <Temo Santa - Last Filed: 08/22/21 01:03> - Studies Laboratory Data (last 24 hrs) 08/21/21 20:03: WBC 4.80 D, Hgb 12.0, Hct 35.9 L, Plt Count 207 08/21/21 20:03: Sodium 136, Potassium 4.1, BUN 6 L, Creatinine 0.88, Glucose 130 H, Total Bilirubin 0.8, AST 136 H, ALT 128 H, Alkaline Phosphatase 93, Lipase 139 <John Moreno - Last Filed: 08/22/21 14:50> Assessment and Plan - Plan Assessment: Abdominal pain, intractable nausea/vomiting secondary to colitis ETOH withdrawal/abuse Plan: Abdominal pain, intractable nausea/vomiting secondary to colitis: Continue with IV fluids/antibiotic/Zosyn as patient had alcoholic beverage today we will hold off on Flagyl at this time. Patient also reports diarrhea have ordered stool studies/C. difficile. CT abdomen pelvis with ascending/transverse colitis without any other complications by blood cell count normal at this time. N.p.o., advance as tolerated. Anticipate prolonged hospitalization given EtOH withdrawal and significant alcohol abuse. ETOH withdrawal/abuse: Patient reports that she has been drinking approximately 1 handle of [place] every other day over the course of the last 10 to 12 years, reports she has decreased to approximately 24 to 36 ounces of rum daily over the course of the last 1 month. Last drink was on 08/21/2021 at approximately 1300. Patient reports she has had serious symptoms related to alcohol withdrawal including visual and auditory hallucinations in the past. Will admit to ICU continue with DT protocol. DVT PPX: Lovenox Code status: Full Discharge Plan: Home Plan to discharge in: Greater than 2 days - Advance Directives Does patient have a Living Will: No Does patient have a Durable POA for Healthcare: No - Code Status/Comfort Care Code Status Assessed: Yes (FC) Critical Care: No Time Spent Managing Pts Care (In Minutes): 55 <Temo Santa - Last Filed: 08/22/21 01:03> - Plan Patient seen and examined this morning on rounds. Agree with plan of care as noted above. Patient states she is feeling slightly better this morning, continues with nausea, no emesis. High risk for alcohol withdrawal/DTs Continue ICU level of care, alcohol withdrawal protocol Continue antibiotics Follow-up cultures N.p.o. for now, can possibly advance to clears later today <John Moreno - Last Filed: 08/22/21 14:50>
[2021-08-22] MEDS ORDERED: FLUMAZENIL 0.1 MG/ML (5 mL VIAL) IV PRN (02:18)
[2021-08-22] MEDS ORDERED: HALOPERIDOL LACT 5 MG/ML INJ IM PRN (02:18)
[2021-08-22] MEDS: LORazepam 2 MG/ML VIAL IV SCH ×6 (02:18→22:18)
[2021-08-22] MEDS: PIPER TAZO 3.375 GM in NA CHLORIDE 0.9% 100 ML IV SCH ×3 (02:18→17:00)
[2021-08-22] MEDS ORDERED: LORazepam 2 MG/ML VIAL IV PRN (02:18)
[2021-08-22] MEDS: NA CHLORIDE 0.9% 1,000 ML IV SCH ×3 (05:00→18:20)
[2021-08-22 05:23] LABS: Absolute Lymphocytes (CBC) 0.7 K/uL (0.7-4.9); Basophils % 0.5 % (0-1.3); Hematocrit 29.7 % (36.0-45.0); Lymphocytes % 16.8 % (15.3-44.8); MPV 7.8 fL (7.6-11.3); RBC Red Blood Cell Count 3.01 M/uL (3.86-4.86)
[2021-08-22] MEDS: LORazepam 2 MG/ML VIAL IV PRN (05:23)
[2021-08-22 05:52] LABS: Albumin 3.2 g/dL (3.4-5.0); Bilirubin Total 0.7 mg/dL (0.2-1.0); Magnesium 1.5 mg/dL (1.8-2.4); Phosphorus 3.4 mg/dL (2.5-4.9)
[2021-08-22] MEDS: ONDANSETRON 4 MG/2 ML VIAL IV PRN ×2 (06:25→23:16)
[2021-08-22] MEDS ORDERED: Magnesium Sulfate 2gm IVPB 2 G/50 ML BAG IV ONE (06:38)
[2021-08-22] MEDS ORDERED: ONDANSETRON 4 MG/2 ML VIAL ONE ×2 (06:44→23:38)
[2021-08-22] MEDS ORDERED: PIPERACIL/TAZO 3.375 GM VIAL IV ONE ×3 (06:53→21:08)
[2021-08-22] MEDS ORDERED: FOLIC ACID 1 MG TABLET ONE (08:09)
[2021-08-22] MEDS ORDERED: ENOXAPARIN 40 MG/0.4 ML SQ ONE (08:09)
[2021-08-22 08:53] LABS: Urine Blood Negative (Negative); Urine Glucose Negative (Negative); Urine Protein Trace (Negative)
[2021-08-22] MEDS: ENOXAPARIN 40 MG/0.4 ML SQ SCH (09:00)
[2021-08-22] MEDS: FOLIC ACID 1 MG, MULTIVITAMINS INJ 10 ML, THIAMINE HCL 100 MG in NA CHLORIDE 0.9% 1,000 ML IV SCH (09:00)
[2021-08-23] MEDS: NA CHLORIDE 0.9% 1,000 ML IV SCH ×5 (01:00→20:29)
[2021-08-23] MEDS: PIPER TAZO 3.375 GM in NA CHLORIDE 0.9% 100 ML IV SCH ×3 (01:00→19:45)
[2021-08-23 01:05] VITALS: BMI 28.5
[2021-08-23] MEDS: LORazepam 2 MG/ML VIAL IV SCH ×5 (02:18→18:00)
[2021-08-23] MEDS ORDERED: HYDROCODONE/APAP 5/325 MG TAB PO ONE (03:29)
[2021-08-23] MEDS ORDERED: NA CHLORIDE 0.9% 100 ML ONE ×3 (04:03→19:53)
[2021-08-23] MEDS ORDERED: NA CHLORIDE 0.9% 1,000 ML ONE ×2 (04:03→11:54)
[2021-08-23] MEDS ORDERED: PIPERACIL/TAZO 3.375 GM VIAL IV ONE ×3 (04:04→19:53)
[2021-08-23 04:21] LABS: Absolute Lymphocytes (CBC) 0.7 K/uL (0.7-4.9); Hematocrit 29.9 % (36.0-45.0); Lymphocytes % 28.1 % (15.3-44.8); RBC Red Blood Cell Count 2.97 M/uL (3.86-4.86)
[2021-08-23 04:40] LABS: ALT/SGPT 86 U/L (12-78); AST/SGOT 77 U/L (15-37); Albumin 2.8 g/dL (3.4-5.0); Alkaline Phosphatase 68 U/L (45-117); BUN Blood Urea Nitrogen 6 mg/dL (7-18); Bicarbonate 22 mmol/L (21-32); Bilirubin Total 0.6 mg/dL (0.2-1.0); Glucose Level 82 mg/dL (74-106); Magnesium 2.2 mg/dL (1.8-2.4); Phosphorus 2.4 mg/dL (2.5-4.9); Potassium 3.8 mmol/L (3.5-5.1); Protein, Total 5.3 g/dL (6.4-8.2); Sodium Level 142 mmol/L (136-145)
--- NOTE | 2021-08-23 07:14 | P.PN ---
Date of Service: 08/23/21 Subjective: feeling better, not as anxious. didn't sleep too well overnight. continues with R lower abd cramping intermittently no nausea/vomiting. denies BM/voiding RN states got ~100cc straight cath early AM yesterday, and pt had watery mixed BM/urine during the day also reporting feeling dyspnea on exertion over last few days ROS - 10 point review of systems otherwise negative Physical Exam Gen: NAD, AAOx3 HEENT: normal conjunctiva, sclera anicteric, PERRL CV: sinus tachycardia 100-115, no murmur Pulm: clear to auscultation bilaterally, nonlabored on room air Abd: soft, mild tenderness to palpation in R abd, more in RLQ MSK: no joint tenderness Integumentary: no rashes Neuro: normal speech/affect. str 5/5 x 4 extr Problem List: Abdominal pain, intractable nausea/vomiting secondary to colitis ETOH withdrawal/abuse Dyspnea on Exertion Continue with IV fluids/Zosyn - avoiding flagyl CT abd/pelvis: ascending/transverse colitis ice chips / sips of water, possibly advance diet later today 1 dose of ativan overnight. withdrawal symptoms mild at this time continue to monitor in ICU, possibly downgrade later today she has been drinking approximately 1 handle of [place] every other day over the course of the last 10 to 12 years, reports she has decreased to approximately 24 to 36 ounces of rum daily over the course of the last 1 month. Last drink was on 08/21/2021 at approximately 1300. Patient reports she has had serious symptoms related to alcohol withdrawal including visual and auditory hallucinations in the past. will check CTA chest to r/o PE, pt reports new onset dyspnea for several days, tachycardic VTE: lovenox Code: full Dispo: home in 1-2 days
--- NOTE | 2021-08-23 07:51 | RAD REPORT ---
EXAM DESCRIPTION: CT - Chest For Pe Angio - 08/23/2021 7:31 am CLINICAL HISTORY: dyspnea x few days, tachy, r/o PE COMPARISON: Abdomen Pelvis W Contrast dated 08/21/2021 FINDINGS: Chest Wall: No suspicious thyroid nodules or pathologic lymphadenopathy. Lungs: Mild interlobular septal thickening. Pleura: Small bilateral effusions. Mediastinum/lauryn: No pathologic lymphadenopathy. Moderate hiatal hernia. Pulmonary arteries/Aorta: No filling defect identified. No aortic aneurysm. Heart: No significant pericardial effusion. Normal heart size. Upper abdomen: Hepatomegaly with steatosis. Bones: No acute abnormality. All CT scans are performed using dose optimization technique as appropriate and may include automated exposure control or mA/KV adjustment according to patient size. IMPRESSION: Negative for pulmonary embolism. Mild pulmonary edema.
[2021-08-23] MEDS: ENOXAPARIN 40 MG/0.4 ML SQ SCH (08:52)
[2021-08-23] MEDS: FOLIC ACID 1 MG, MULTIVITAMINS INJ 10 ML, THIAMINE HCL 100 MG in NA CHLORIDE 0.9% 1,000 ML IV SCH (08:52)
[2021-08-23] MEDS ORDERED: ENOXAPARIN 40 MG/0.4 ML SQ ONE (09:00)
[2021-08-23] MEDS ORDERED: LORazepam 2 MG/ML VIAL ONE ×2 (12:02→19:01)
[2021-08-23] MEDS ORDERED: ACETAMINOPHEN 500 MG TAB PO PRN (17:43)
[2021-08-23] MEDS ORDERED: ACETAMINOPHEN 500 MG TAB ONE (18:21)
[2021-08-23] MEDS: HYDROCODONE/APAP 5/325 MG TAB PO PRN (19:45)
[2021-08-23] MEDS ORDERED: HYDROCODONE/APAP 5/325 MG TAB ONE (19:53)
[2021-08-23] MEDS: LORazepam 2 MG/ML VIAL IV PRN (23:11)
[2021-08-24] MEDS ORDERED: LORazepam 2 MG/ML VIAL IV SCH (01:00)
[2021-08-24] MEDS ORDERED: PIPERACIL/TAZO 3.375 GM VIAL IV ONE ×3 (01:32→15:58)
[2021-08-24] MEDS: PIPER TAZO 3.375 GM in NA CHLORIDE 0.9% 100 ML IV SCH ×3 (01:48→16:15)
[2021-08-24] MEDS: LORazepam 2 MG/ML VIAL IV PRN ×2 (01:48→04:53)
[2021-08-24] MEDS: HYDROCODONE/APAP 5/325 MG TAB PO PRN ×4 (01:49→20:12)
[2021-08-24] MEDS: LORazepam 2 MG/ML VIAL IV SCH ×2 (04:53→17:16)
[2021-08-24 06:11] LABS: Urine Appearance CLOUDY (Clear); Urine Bilirubin NEGATIVE (Negative); Urine Blood 1+ (Negative); Urine Color YELLOW (Yellow); Urine Glucose NEGATIVE (Negative); Urine Protein NEGATIVE (Negative); Urine Specific Gravity 1.015 (1.005-1.030)
[2021-08-24 06:18] LABS: Barbiturates NEGATIVE (NEGATIVE); Benzodiazepines POSITIVE (NEGATIVE); Cocaine POSITIVE (NEGATIVE); METHAMPHETAM NEGATIVE (NEGATIVE); Methadone NEGATIVE (NEGATIVE); Opiates NEGATIVE (NEGATIVE); Phencyclidine NEGATIVE (NEGATIVE); THC Cannibis NEGATIVE (NEGATIVE)
--- NOTE | 2021-08-24 06:26 | P.PN ---
Subjective Date of Service: 08/24/21 Primary Care Provider: Dr. Bradley Chief Complaint: Alcohol withdrawal, colitis, intractable vomiting Physical Examination - Vital Signs Temperature: 97.2 F Blood Pressure: 144/90 Pulse: 91 Respirations: 18 Pulse Ox (%): 100
[2021-08-24 06:40] LABS: Absolute Lymphocytes (CBC) 0.7 K/uL (0.7-4.9); Basophils % 0.7 % (0-1.3); Hematocrit 28.5 % (36.0-45.0); MPV 7.7 fL (7.6-11.3); RBC Red Blood Cell Count 2.86 M/uL (3.86-4.86)
[2021-08-24 06:59] LABS: ALT/SGPT 86 U/L (12-78); AST/SGOT 92 U/L (15-37); Albumin 2.7 g/dL (3.4-5.0); Alkaline Phosphatase 66 U/L (45-117); BUN Blood Urea Nitrogen 4 mg/dL (7-18); Bicarbonate 21 mmol/L (21-32); Bilirubin Total 0.6 mg/dL (0.2-1.0); Glucose Level 81 mg/dL (74-106); Magnesium 1.7 mg/dL (1.8-2.4); Phosphorus 2.2 mg/dL (2.5-4.9); Protein, Total 5.4 g/dL (6.4-8.2); Sodium Level 143 mmol/L (136-145)
[2021-08-24 07:40] LABS: Urine Bacteria <20 /HPF (<20); Urine RBC <5 /HPF (NONE SEEN)
[2021-08-24] MEDS ORDERED: POTASSIUM PHOS IN 0.9 % NACL 15 MMOL/250 ML BAG IV ONE (08:00)
[2021-08-24] MEDS ORDERED: MAGNESIUM SULFATE 1 gm IVPB 1 GM/100 ML BAG IV ONE (08:00)
[2021-08-24] MEDS: FOLIC ACID 1 MG, MULTIVITAMINS INJ 10 ML, THIAMINE HCL 100 MG in NA CHLORIDE 0.9% 1,000 ML IV SCH (08:58)
[2021-08-24] MEDS: ENOXAPARIN 40 MG/0.4 ML SQ SCH (08:59)
[2021-08-24] MEDS: POTASS/SODIUM PHOSPHATE 1 PKT POWD.PACK PO SCH ×3 (09:02→10:52)
[2021-08-24 12:40] LABS: C.diff Antigen/Toxin Ag neg : Tox neg (NEG : NEG)
--- NOTE | 2021-08-24 17:32 | P.PN ---
Date of Service: 08/24/21 Subjective: feeling better, not as anxious. didn't sleep too well overnight again continues with R lower abd cramping intermittently, but improving Slight nausea. Tolerating ice chips, no appetite ROS - 10 point review of systems otherwise negative Physical Exam Gen: NAD, AAOx3 HEENT: normal conjunctiva, sclera anicteric, PERRL CV: Regular rate and rhythm, no murmur Pulm: Slightly diminished at bases bilaterally, on 2 L nasal cannula Abd: soft, mild tenderness to palpation in R abd, more in RLQ MSK: no joint tenderness Integumentary: no rashes Neuro: normal speech/affect. str 5/5 x 4 extr Problem List: Abdominal pain, intractable nausea/vomiting secondary to colitis ETOH withdrawal/abuse Dyspnea on Exertion DC IV fluids, continue Zosyn CT abd/pelvis: ascending/transverse colitis ice chips / sips of water, possibly advance diet later today 1 dose of ativan overnight. withdrawal symptoms mild at this time. Discontinue scheduled Ativan, continue as needed Downgraded from ICU on 08/23 Slight pulmonary edema noted on CT on 08/23, likely from all IV fluids patient has received VTE: lovenox Code: full Dispo: home in 1-2 days Time spent managing patient's care: 35 minutes
[2021-08-24] MEDS ORDERED: TRAZODONE 50 MG TABLET PO PRN (17:34)
[2021-08-25] MEDS: PIPER TAZO 3.375 GM in NA CHLORIDE 0.9% 100 ML IV SCH ×3 (00:46→16:23)
[2021-08-25] MEDS ORDERED: NA CHLORIDE 0.9% 0 ML ONE (01:06)
[2021-08-25] MEDS ORDERED: PIPERACIL/TAZO 3.375 GM VIAL IV ONE (01:06)
[2021-08-25] MEDS: LORazepam 2 MG/ML VIAL IV PRN ×3 (01:09→16:22)
[2021-08-25] MEDS: HYDROCODONE/APAP 5/325 MG TAB PO PRN ×4 (04:21→21:10)
[2021-08-25 05:32] LABS: Absolute Lymphocytes (CBC) 0.7 K/uL (0.7-4.9); Basophils % 0.5 % (0-1.3); Hematocrit 29.3 % (36.0-45.0); Lymphocytes % 30.6 % (15.3-44.8); MPV 7.2 fL (7.6-11.3)
[2021-08-25 05:46] LABS: ALT/SGPT 84 U/L (12-78); AST/SGOT 59 U/L (15-37); Albumin 2.8 g/dL (3.4-5.0); Alkaline Phosphatase 65 U/L (45-117); BUN Blood Urea Nitrogen 2 mg/dL (7-18); Bicarbonate 25 mmol/L (21-32); Bilirubin Total 0.5 mg/dL (0.2-1.0); Glucose Level 78 mg/dL (74-106); Magnesium 1.9 mg/dL (1.8-2.4); Phosphorus 3.2 mg/dL (2.5-4.9); Potassium 3.5 mmol/L (3.5-5.1); Protein, Total 5.3 g/dL (6.4-8.2); Sodium Level 143 mmol/L (136-145)
[2021-08-25 07:18] LABS: Anisocytosis 3+; Blood Morphology Comment NOTED (NOT SEEN); Macrocytosis 1+; Platelet Estimate ADEQ
[2021-08-25] MEDS: THIAMINE HCL 100 MG TABLET PO SCH (08:25)
[2021-08-25] MEDS: FOLIC ACID 1 MG TABLET PO SCH (08:25)
[2021-08-25] MEDS: LACTOBACILLUS/ACIDOPHILUS TAB PO SCH ×2 (08:25→21:10)
[2021-08-25] MEDS: ENOXAPARIN 40 MG/0.4 ML SQ SCH (08:25)
[2021-08-25] MEDS ORDERED: POTASSIUM CL SA 10 MEQ TAB PO ONE (09:00)
--- NOTE | 2021-08-25 14:16 | P.PN ---
Date of Service: 08/25/21 Subjective: Feeling better today, feels like abdominal pains about 50% as severe as when she first came in Slight nausea, but tolerating water/lemonade today, minimal to no appetite She thinks eating may be contributing to her pain Doing well from withdrawal aspect, with some slight tremors/agitation, much be tter Headache overnight as well Slight dyspnea on exertion, on room air 23 episodes of diarrhea, loose stool ROS - 10 point review of systems otherwise negative Physical Exam Gen: NAD, AAOx3 HEENT: normal conjunctiva, sclera anicteric, PERRL CV: Regular rate and rhythm, no murmur Pulm: Slightly diminished at bases bilaterally, on RA Abd: soft, mild tenderness to palpation in R abd, more in RLQ MSK: no joint tenderness Integumentary: no rashes Neuro: normal speech/affect. str 5/5 x 4 extr Problem List: Abdominal pain, intractable nausea/vomiting secondary to moderate ascending/transverse colitis ETOH withdrawal/abuse Dyspnea on Exertion Continue Zosyn CT abd/pelvis: ascending/transverse colitis Advance to full liquid diet Decrease dose of as needed Ativan, only to be used if needed Downgraded from ICU on 08/23 Slight pulmonary edema noted on CT on 08/23, likely from all IV fluids patient has received Overall improving slowly No significant further improvement tomorrow, will consider repeat CT abdomen/pelvis to re-evaluate, r/o abscess. pt does remain afebrile VTE: lovenox Code: full Dispo: home in ~1-2 days Time spent managing patient's care: 35 minutes
[2021-08-25] MEDS ORDERED: NA CHLORIDE 0.9% 100 ML ONE (16:25)
[2021-08-26] MEDS: PIPER TAZO 3.375 GM in NA CHLORIDE 0.9% 100 ML IV SCH ×3 (00:34→17:42)
[2021-08-26] MEDS: MORPHINE 2 MG/ML SYR IV PRN ×3 (01:19→18:07)
[2021-08-26] MEDS: LORazepam 2 MG/ML VIAL IV PRN ×2 (03:43→12:53)
[2021-08-26] MEDS: THIAMINE HCL 100 MG TABLET PO SCH (08:22)
[2021-08-26] MEDS: LACTOBACILLUS/ACIDOPHILUS TAB PO SCH ×2 (08:22→20:36)
[2021-08-26] MEDS: FOLIC ACID 1 MG TABLET PO SCH (08:22)
[2021-08-26] MEDS: ENOXAPARIN 40 MG/0.4 ML SQ SCH (08:22)
--- NOTE | 2021-08-26 11:17 | RAD REPORT ---
EXAM DESCRIPTION: CTAbdomen Pelvis W Contrast - 08/26/2021 11:06 am CLINICAL HISTORY: . continued R abd pain, f/u colitis, r/o abscess COMPARISON: Abdomen Pelvis W Contrast dated 08/21/2021; Abdomen Pelvis W Contrast dated 08/13/2021 TECHNIQUE: Biphasic CT imaging of the abdomen and pelvis was performed with 100 ml non-ionic IV cont rast. All CT scans are performed using dose optimization technique as appropriate and may include automated exposure control or mA/KV adjustment according to patient size. FINDINGS: Lower chest: Small bilateral effusions. Small hiatal hernia. Liver: Hepatic steatosis. Hypoattenuating lesion in the right hepatic lobe measuring 10 millimeters i s unchanged. Focal fatty infiltration in segment 4 of the liver. Biliary: No biliary ductal dilatation. Stomach: No significant focal abnormality. Duodenum: No significant focal abnormality. Pancreas: No significant abnormality. Spleen: No significant abnormality. Adrenal: No suspicious lesions. Kidney/ureter: No hydronephrosis. No renal calculi. Retroperitoneum: No retroperitoneal adenopathy. Vascular: No aneurysm. Bowel: Colonic wall thickening on the prior CT as improved though not completely resolved.. Peritoneum: No ascites or free air. Anasarca. Bladder: Grossly unremarkable. Reproductive: No adnexal masses. Bones: No acute fracture. Other: n/a IMPRESSION: Improved though not completely resolved colonic wall thickening compatible with a coliti s. Increased anasarca.
[2021-08-26] MEDS: ONDANSETRON 4 MG/2 ML VIAL IV PRN (12:55)
[2021-08-26] MEDS: MAGNESIUM CITRATE 300 ML BOT PO SCH (13:00)
[2021-08-26 14:31] LABS: ALT/SGPT 82 U/L (12-78); AST/SGOT 56 U/L (15-37); Albumin 3.1 g/dL (3.4-5.0); Alkaline Phosphatase 70 U/L (45-117); BUN Blood Urea Nitrogen 2 mg/dL (7-18); Bicarbonate 23 mmol/L (21-32); Bilirubin Total 0.5 mg/dL (0.2-1.0); Glucose Level 99 mg/dL (74-106); Magnesium 1.6 mg/dL (1.8-2.4); Potassium 3.8 mmol/L (3.5-5.1); Protein, Total 5.9 g/dL (6.4-8.2); Sodium Level 140 mmol/L (136-145)
[2021-08-26] MEDS: HYDROCODONE/APAP 5/325 MG TAB PO PRN ×2 (14:32→20:47)
[2021-08-26 14:33] LABS: Basophils % 0.7 % (0-1.3); MPV 6.9 fL (7.6-11.3); RBC Red Blood Cell Count 3.05 M/uL (3.86-4.86)
[2021-08-26] MEDS ORDERED: FUROSEMIDE 20 MG/ 2ML VIAL IV ONE (14:35)
--- NOTE | 2021-08-26 15:14 | P.PN ---
Date of Service: 08/26/21 Subjective: Feels slightly better than yesterday, but not as a significant improvement just prior days. Still having 5/10 abdominal discomfort in the right lower quadrant, some slight nausea, no vomiting, and improving diarrhea. Denies any bloody bowel movements. Continues with some slight dyspnea on exertion ROS - 10 point review of systems otherwise negative Physical Exam Gen: NAD, AAOx3 HEENT: normal conjunctiva, sclera anicteric, PERRL CV: Regular rate and rhythm, no murmur Pulm: Slightly diminished at bases bilaterally, on RA Abd: soft, mild tenderness to palpation in R abd, more in RLQ Integumentary: no rashes Neuro: normal speech/affect. str 5/5 x 4 extr Problem List: Abdominal pain, intractable nausea/vomiting secondary to moderate ascending/transverse colitis ETOH withdrawal/abuse Dyspnea on Exertion Continue Zosyn CT abd/pelvis: ascending/transverse colitis 1 episode last night after eating with worsening pain, will back down to clear liquid diet We will repeat CT abdomen/pelvis to reevaluate, rule out abscess Patient has remained afebrile, stool leuks negative Family report patient's aunt and great-grandmother history of Crohn's disease or ulcerative colitis There is a possibility that this could be inflammatory bowel disease, Dr. Munoz consulted As far as alcohol withdrawal, patient has significantly improved, minimal symptoms, continue with as needed Ativan at a lower dose Downgraded from ICU on 08/23 With some slight bilateral pleural effusions/pulmonary edema on CT, patient with some dyspnea on exertion, secondary to the amount of IV fluid she initially received in the ER. Will give low-dose Lasix today VTE: lovenox Code: full Dispo: home in ~2 days Time spent managing patient's care: 35 minutes
[2021-08-26 15:59] LABS: C-Reactive Protein < 2.90 mg/L (<3.00)
[2021-08-26] MEDS ORDERED: METOCLOPRAMIDE 10 MG/2mL INJ IV SCH (18:00)
[2021-08-26] MEDS: GOLYTELY 4000 ML PO SCH (19:30)
--- NOTE | 2021-08-26 20:23 | CON ---
Date of Consultation: 08/26/2021 Reason For Consultation: Colitis of the right colon, right lower quadrant pain, abnormal CT revealin g colitis of the ascending and transverse colon. History Of Present Illness: The patient is a 40-year-old white female with history of alcohol abuse, anxiety, gastric reflux disease, and appendectomy. The patient came to the hospital with right lowe r quadrant pain, nausea, vomiting, and alcohol withdrawal. CT scan reveals moderate inflammation of the ascending, transverse colon. The patient had a second CT scan approximately 4 days after admissi on, which revealed colitis, largely resolved. The patient was unable to tolerate advance in her diet today from clear liquids to full liquids. Despite this improvement, her white count stayed normal t o low thought secondary to her alcohol abuse. She is still on IV fluids and IV fluids have been stop ped due to her anasarca, but she continues IV antibiotics, which she has been on for 4 days. The pat tobin has a family history of Crohn disease in her maternal aunt and her maternal great grandmother, fela treviño seem to have similar symptoms. She reports of the diarrhea. She is unsure if they have the right lower quadrant pain, which she plans on asking her maternal aunt this question. Past Medical History: Significant for generalized anxiety disorder, alcohol abuse, gastric reflux di sease, appendectomy. Social History: She lives at home with her 3 children, 17-year-old son, I think is a 15-year-old stacy ashton, and 11-year-old son. She is going through a divorce, which has been prolonged over the past 3 years. She denies any tobacco. She says she quit alcohol 2 weeks ago. Before that, which she was drinking "1 handle over the course of 1-2 days, but over the past month, she was drinking approximate ly 24-32 ounces on a daily basis." Last drink according to the chart review was 08/21/2021, at 1 o'c lock. However, she told me that her last drink was 2 weeks ago. Korsakoff encephalopathy, Wernicke encephalopathy possibly she cannot remember exactly correctly, but somewhere between 1-2 weeks ago, h er last drink appeared definitely since she has been in the hospital. Her father is at bedside and alton mai supportive and willing to be accountability partner with her. Family History: Father has a gastric reflux disease, Arnold esophagus, colon polyps, history of hyp ercholesterolemia, and hypertension. Mother has hypercholesterolemia. Maternal aunt with Crohn dise ase. Maternal great grandmother with Crohn disease. Review of Systems: The patient has right lower quadrant pain over the past 7 months, increased over the past 2 weeks wit h syncope noted to come to the hospital. The patient also has diet change in bowel habits diarrhea t nima unable to get a good sample here in the hospital left today. The patient denies any melena, he matochezia, hematemesis, coffee-ground emesis, hematuria, dysuria, polydipsia, chest pain, shortness of breath, seizure, syncope. She does have lower extremity edema. No significant muscle aches, join t aches, backaches. She does have edema throughout her body. She says she is puffy like . Physical Examination: Vital Signs: The patient is 5 feet 8 inches, 180 pounds, BMI 28.6 kg/sq m, temperature 96.9 degrees Fahrenheit, pulse 98, respirations 18, blood pressure 126/73, O2 saturation 93% on room air. General: She is an obese female, lying in bed, in no acute distress with anasarca, puffy face. She has a feet she says is out of the ordinary and IV fluids have been stopped. She is Hep-Lock on IV. HEENT: Normocephalic, atraumatic. Anicteric. Pupils equal, round, and reactive to light. Orophary nx clear. Neck: Supple. No masses. Respirations: Clear to auscultation bilaterally. Cardiac: Regular. Gastrointestinal: Positive bowel sounds. Soft, nontender, nondistended. Obese with pain in the rig ht lower quadrant area with mild guarding, but no rebound. No peritoneal signs or Lewis sign. Extremities: 1+, 2+ lower extremity edema. Somewhat 1+, 2+ edema in the upper extremities and in th e face, some mild increased vascular redness in the cheeks as well with vasculature noted a possible rosacea. Laboratory Data: The patient has a white count of 3.2; neutrophil count of 1.4 yesterday, was down t o 1.1; polys of 45%; lymphocytes 30%; monocytes 21%; eosinophils 3%; hemoglobin 10 and lowest has bee n 9.2 on the ; hematocrit 30; MCV of 98.2, 100.8 yesterday, which is elevated; platelet count of 194 with as low as 135, which is low on the 23 of August. Sodium was 140, potassium 3.8, chlori de 106, bicarb 23, BUN of 2, creatinine of 0.7, glucose 99, calcium 8.4, phosphorus 3.0, magnesium 1. 6. Total bilirubin 0.5, AST of 56, ALT of 82, alkaline phosphatase 70. C-reactive protein less than 2.9, total protein 5.9, albumin 3.1. Lipase 139, normal. Urinalysis revealed a 1+ blood, trace zohreh kocyte esterase, less than 5 white blood cells, less than 5 squamous epithelial cells, less than 5 RB Cs, and negative nitrite. test negative. UA was positive for benzodiazepines and cocaine. C diff was negative. COVID-[address] testing was [address] Reports CT abdomen and pelvis on August 21, revealed moderate inflammatory changes involving the transverse and ascending colon compatible wi moderate colitis and diffuse fatty liver. Prior appendectomy noted as well. Repeat CT scan abdom en and pelvis on August 26 today reveals improvement, though not completely resolved. Colonic wall thickening compatible with colitis and increased anasarca. Impression: 1.Colitis in ascending, transverse colon with the right colon with right lower quadrant pain over e past 7 months, increased over the past 2 weeks with syncopal episode leading to her coming to the ospital after 17-year-old son drove over to her parent's house. Finally came to the hospital. CT ab domen and pelvis initially on the 21 of August, which revealed moderate colitis of the ascending , transverse colon. On August 26, repeat CT scan showed her nausea resolved. She has a family his tory of Crohn disease in her maternal aunt and maternal great grandmother with similar symptoms. IV antibiotics after 4 days, has not resolved. The patient was unable to tolerate an advance in diet fr om clear liquids to full liquids today. CT scan showed improvement as stated above. The differentia l includes Crohn disease, infection, ischemic colitis, or other will need to be await stool studies a nd possibly do a colonoscopy with biopsies to determine if this is inflammatory bowel disease versus other entities such as infection or ischemic colitis. 2.Anasarca from increased IV fluids with edema. IV fluids have been discontinued with Hep-Lock 8 L of fluid was given while in the hospital, so thus far. 3.Low white count with ANC of possible 1.4 and 1.1 yesterday from alcohol abuse and possibly other e tiologies such as infection or other. 4.Fatty liver disease, probably from alcohol abuse. Will need to stop that. Recommendations: 1.Continue IV antibiotics. 2.Check stool studies. 3.Agree with holding IV fluids since patient had IV fluid induced anasarca with an 8 L of fluid give n, now IV Lasix has been ordered as well. 4.Continue p.r.n. pain medicines, antiemetics. 5.The patient will need alcoholic anonymous rehab or other therapy for her alcohol cessation on long -term basis upon discharge. 6.Benzodiazepines p.r.n. 7.DT precautions. 8.IV folate. 9.IV steroids. 10.Colonoscopy with limited biopsies possibly tomorrow. 11.Check inflammatory bowel disease panel for possibility of Crohn disease. NE/DEE Voice ID: [id number] Report ID: [id number]
[2021-08-26] MEDS: HYDRALAZINE HCL 20 MG/ML VIAL IV PRN (21:31)
[2021-08-27] MEDS: PIPER TAZO 3.375 GM in NA CHLORIDE 0.9% 100 ML IV SCH ×4 (01:00→18:45)
[2021-08-27] MEDS: MORPHINE 2 MG/ML SYR IV PRN ×3 (02:32→20:36)
[2021-08-27] MEDS: METOCLOPRAMIDE 10 MG/2mL INJ IV SCH ×2 (03:00→08:33)
[2021-08-27] MEDS: HYDROCODONE/APAP 5/325 MG TAB PO PRN ×2 (05:00→16:48)
[2021-08-27 06:14] LABS: Absolute Lymphocytes (CBC) 0.8 K/uL (0.7-4.9); Basophils % 0.9 % (0-1.3); Hematocrit 30.7 % (36.0-45.0); Lymphocytes % 30.9 % (15.3-44.8); RBC Red Blood Cell Count 3.14 M/uL (3.86-4.86)
--- NOTE | 2021-08-27 06:19 | P.PN ---
Date of Service: 08/27/21 Subjective: States she is doing okay today. Having some right lower quadrant crampy pain after starting the bowel prep. Does feel hungry. No vomiting Doing well from withdrawal standpoint. Afebrile, still with loose stools Swelling improved, urinated quite a bit yesterday, breathing more comfortably ROS - 10 point review of systems otherwise negative Physical Exam Gen: NAD, AAOx3 HEENT: normal conjunctiva, sclera anicteric, PERRL CV: Regular rate and rhythm, no murmur Pulm: Slightly diminished at bases bilaterally, on RA Abd: soft, mild tenderness to palpation in R abd, RLQ Integumentary: no rashes, no lesions Neuro: normal speech/affect. str 5/5 x 4 extr Problem List: Abdominal pain, intractable nausea/vomiting secondary to moderate ascending/transverse colitis ETOH withdrawal/abuse Dyspnea on Exertion Family history of Crohn's disease Continue Zosyn Admission CT abd/pelvis: ascending/transverse colitis Patient was mild improvement, repeat CT obtained on 08/26, resolving colitis. Evidence of anasarca Given that is been over 4 days with antibiotics and no resolution, GI was consulted 08/26 GI recommended colonoscopy, to be done today Patient with family historymaternal aunt and great-grandmother with Crohn's She has had some mild pains over several months, which is concerning for possible inflammatory bowel disease As far as alcohol withdrawal, patient has significantly improved, minimal symptoms, continue with as needed Ativan at a lower dose Downgraded from ICU on 08/23 IV fluids discontinued on 08/25, 1 dose of IV Lasix given on 08/26. Patient responded well, diuresed well, breathing more comfortably VTE: lovenox Code: full Dispo: Anticipate home in 1-2 days. Slow to progress. Pending colonoscopy results Time spent managing patient's care: 35 minutes
[2021-08-27 06:31] LABS: ALT/SGPT 74 U/L (12-78); AST/SGOT 50 U/L (15-37); Albumin 3.1 g/dL (3.4-5.0); Alkaline Phosphatase 69 U/L (45-117); BUN Blood Urea Nitrogen 1 mg/dL (7-18); Bicarbonate 25 mmol/L (21-32); Bilirubin Total 0.6 mg/dL (0.2-1.0); Glucose Level 93 mg/dL (74-106); Magnesium 1.5 mg/dL (1.8-2.4); Phosphorus 4.1 mg/dL (2.5-4.9); Potassium 3.3 mmol/L (3.5-5.1); Protein, Total 5.8 g/dL (6.4-8.2); Sodium Level 142 mmol/L (136-145)
[2021-08-27 06:47] LABS: C-Reactive Protein < 2.90 mg/L (<3.00)
[2021-08-27 08:02] LABS: White Blood Cell Scan OK (OK)
[2021-08-27 08:03] LABS: Anisocytosis 2+; Blood Morphology Comment NOTED (NOT SEEN); Macrocytosis 1+; Platelet Estimate ADEQ
[2021-08-27] MEDS: ENOXAPARIN 40 MG/0.4 ML SQ SCH (09:00)
[2021-08-27] MEDS ORDERED: Ringers Lactate 1,000 ML IV ONE (09:20)
[2021-08-27] MEDS ORDERED: propofoL 200 MG/20 ML VIAL IV ONE ×2 (10:33)
[2021-08-27] MEDS ORDERED: LIDOCAINE 1% MPF 5 ML VIAL ONE (10:34)
--- NOTE | 2021-08-27 11:31 | ENDO RPT ---
[address], [address] COLONOSCOPY PROCEDURE REPORT EXAM DATE: 08/27/2021 PATIENT NAME: Pam Restrepo MR #: [id number] BIRTHDATE: 1980 ATTENDING: James Munoz Dr STATUS: inpatient - 7 DRAPERY CUTTER: Marecla Hazel RN and Lilian Read CST INDICATIONS: The patient is a 40 yr old Female here for a colonoscopy due to abdominal pain, abnormal CT of abdomen, change in bowel habits, unexplained chronic diarrhea, and family history of inflammatory bowel disease PROCEDURE PERFORMED: Colonoscopy with biopsy, Colonoscopy with snare polypectomy, and Colon w/ endoclip MEDICATIONS: Per Anesthesia. ESTIMATED BLOOD LOSS: None CONSENT: The patient understands the risks and benefits of the procedure and understands that these risks include, but are not limited to: sedation, allergic reaction, infection, perforation and/or bleeding. Alternative means of evaluation and treatment include, among others: physical exam, x-rays, and/or surgical intervention. The patient elects to proceed with this endoscopic procedure. DESCRIPTION OF PROCEDURE: During intra-op preparation period all mechanical medical equipment was checked for proper function. Hand hygiene and appropriate measures for infection prevention was taken. Procedure, possible complications, alternatives including, but not limited to possibility of bleeding, perforation, tear, infection, sepsis, need for surgery, need for blood transfusion, were explained to the patient. After the risks, benefits and alternatives of the procedure were thoroughly explained, Informed consent was verified, confirmed and timeout was successfully executed by the treatment team. The patient was placed in the left lateral position. A digital rectal exam was performed and revealed no abnormalities of the rectum. After appropriate level of anesthesia, the scope was passed. The EC-[id number] ([id number]) endoscope was introduced through the anus and advanced to the terminal ileum which was intubated for a short distance. The quality of the prep was fair. The instrument was then slowly withdrawn as the colon was fully examined. Scope withdrawal time was 8 minutes. COLON FINDINGS: A smooth pedunculated polyp measuring 1.5 cm in size was found in the descending colon. A polypectomy was performed using snare cautery. The resection was complete, the polyp tissue was completely retrieved and sent to histology. The wound at the site was closed by placing hemoclips. One (1) placement was made. There was no blood loss from maneuver. One (1) placement was made. There was no blood loss from maneuver. A smooth sessile polyp measuring 4 mm in size was found in the descending colon. A polypectomy was performed with cold forceps. Random biopsies of the terminal ileum / right colon / left colon / rectum obtained with history of colitis / family history of Crohn's disease / RLQ pain. Small internal hemorrhoids were found. Retroflexion was not performed. The scope was then completely withdrawn from the patient and the procedure terminated. ADVERSE EVENTS: There were no complications. IMPRESSIONS: 1. 1.5 cm pedunculated polyp in the descending colon; polypectomy was performed using snare cautery; the wound at the site was closed by placing hemoclip X1 2. 4 mm sessile polyp in the descending colon; polypectomy was performed with cold forceps 3. Random biopsies of the terminal ileum / right colon / left colon / rectum obtained with history of colitis / family history of Crohn's disease / RLQ pain 4. Small internal hemorrhoids 4. Intubation to terminal ileum RECOMMENDATIONS: 1. await biopsy results 2. avoid NSAIDS for 2 weeks 3. Small Bowel Follow Through 4. pillcam / capsule endoscopy RECALL: Return in 1 year(s) for Colonoscopy. James Munoz Dr eSigned: James Munoz Dr 08/27/2021 11:30 AM cc: CPT CODES: ICD9 CODES: 211.3 Benign neoplasm of colon PATIENT NAME: Pam Restrepo MR#: [id number]
[2021-08-27] MEDS: FOLIC ACID 1 MG TABLET PO SCH (12:09)
[2021-08-27] MEDS: THIAMINE HCL 100 MG TABLET PO SCH (12:09)
[2021-08-27] MEDS: LACTOBACILLUS/ACIDOPHILUS TAB PO SCH ×2 (12:09→20:36)
[2021-08-27] MEDS: MAGNESIUM CITRATE 300 ML BOT PO SCH (13:00)
[2021-08-27] MEDS: GOLYTELY 4000 ML PO SCH (13:47)
[2021-08-27] MEDS: LORazepam 2 MG/ML VIAL IV PRN (14:51)
[2021-08-27] MEDS: ONDANSETRON 4 MG/2 ML VIAL IV PRN (14:54)
[2021-08-27] MEDS: HYDRALAZINE HCL 20 MG/ML VIAL IV PRN (16:48)
[2021-08-27] MEDS ORDERED: PIPER TAZO 3.375 GM in NA CHLORIDE 0.9% 100 ML IV SCH (18:00)
[2021-08-27] MEDS: clonazePAM 0.5 MG TAB PO PRN (21:44)
[2021-08-28] MEDS: PIPER TAZO 3.375 GM in NA CHLORIDE 0.9% 100 ML IV SCH ×3 (01:12→17:19)
[2021-08-28] MEDS: HYDROCODONE/APAP 5/325 MG TAB PO PRN ×3 (01:39→19:41)
[2021-08-28] MEDS: clonazePAM 0.5 MG TAB PO PRN ×3 (05:25→22:48)
[2021-08-28 05:45] LABS: Hematocrit 31.6 % (36.0-45.0); MPV 7.2 fL (7.6-11.3); RBC Red Blood Cell Count 3.22 M/uL (3.86-4.86)
[2021-08-28 06:12] LABS: ALT/SGPT 68 U/L (12-78); AST/SGOT 43 U/L (15-37); Albumin 3.1 g/dL (3.4-5.0); Alkaline Phosphatase 64 U/L (45-117); BUN Blood Urea Nitrogen 1 mg/dL (7-18); Bicarbonate 26 mmol/L (21-32); Bilirubin Total 0.6 mg/dL (0.2-1.0); Glucose Level 94 mg/dL (74-106); Magnesium 1.6 mg/dL (1.8-2.4); Potassium 3.5 mmol/L (3.5-5.1); Protein, Total 5.8 g/dL (6.4-8.2); Sodium Level 141 mmol/L (136-145)
[2021-08-28 06:17] LABS: C-Reactive Protein < 2.90 mg/L (<3.00)
[2021-08-28] MEDS: FOLIC ACID 1 MG TABLET PO SCH (08:19)
[2021-08-28] MEDS: THIAMINE HCL 100 MG TABLET PO SCH (08:19)
[2021-08-28] MEDS: LACTOBACILLUS/ACIDOPHILUS TAB PO SCH ×2 (08:19→19:41)
--- NOTE | 2021-08-28 08:55 | RAD REPORT ---
EXAM DESCRIPTION: MRI - Mri Abdomen W/Wo Cont - 08/28/2021 8:30 am CLINICAL HISTORY: Liver mass COMPARISON: CT August 26, 2021 TECHNIQUE: Axial and coronal magnetic resonance imaging of the liver performed FINDINGS: Within the anterior segment right lobe of the liver it is a 10 millimeter mass which has h igh signal on T2 weighted sequences. Delayed sequences demonstrate enhancement which indicates that t his probably is a hemangioma. There is an additional mass within the anterior segment right lobe of the liver near the gallbladder which also has high signal on T2 weighted sequences. It demonstrates enhancement on delayed sequences and measures 13 millimeters. Fatty infiltration liver is present. IMPRESSION: Two small hepatic lesions probably hemangiomas Fatty liver
[2021-08-28] MEDS ORDERED: KCL 20 MEQ/100 mL IVPB 20 MEQ/100 ML BAG IV SCH (09:00)
[2021-08-28] MEDS ORDERED: MAGNESIUM SULFATE 1 gm IVPB 1 GM/100 ML BAG IV ONE (09:00)
[2021-08-28] MEDS: MORPHINE 2 MG/ML SYR IV PRN (09:52)
[2021-08-28] MEDS ORDERED: NA CHLORIDE 0.9% 250 ML ONE (09:59)
--- NOTE | 2021-08-28 10:12 | RAD REPORT ---
EXAM DESCRIPTION: RAD - Small Bowel Series - 08/28/2021 9:27 am CLINICAL HISTORY: Abdominal pain/ right lower quadrant pain COMPARISON: None. FINDINGS: The patient vomited the contrast after drinking the contrast for approximately 5 minutes. One image of the abdomen obtained at 10 minutes demonstrates normal caliber of the jejunum without no gross abnormalities seen. The patient was unable to continue with the examination
[2021-08-28] MEDS: MAGNESIUM CITRATE 300 ML BOT PO SCH (13:00)
[2021-08-28] MEDS: GOLYTELY 4000 ML PO SCH (14:00)
--- NOTE | 2021-08-28 16:39 | P.PN ---
Date of Service: 08/28/21 Subjective: Better today, had some vomiting after taking medication for small bowel series this morning Still with some cramping in her right lower quadrant Overall feeling a little better Swelling improved, breathing more comfortably Reports some slight anxiety, had vivid dreams last night ROS - 10 point review of systems otherwise negative Physical Exam Gen: NAD, AAOx3 HEENT: normal conjunctiva, sclera anicteric CV: Regular rate and rhythm, no murmur Pulm: Slightly diminished at bases bilaterally, on RA Abd: soft, mild tenderness to palpation in R abd, RLQ Integumentary: no rashes, no lesions Neuro: normal speech/affect. str 5/5 x 4 extr Problem List: Abdominal pain, intractable nausea/vomiting secondary to moderate ascending/transverse colitis ETOH withdrawal/abuse Dyspnea on Exertion Family history of Crohn's disease Continue Zosyn Admission CT abd/pelvis: ascending/transverse colitis Patient had mild improvement, still with significant pain and minimal tolerance of PO, repeat CT obtained on 08/26, resolving colitis. Evidence of anasarca Given that is been over 4 days with antibiotics and no resolution, GI was consulted 08/26 GI recommended colonoscopy, revealed 1.5 cm polyp that was removed. GI felt thi s was more likely infectious, but biopsies were taken and sent. IBD panel sent Liver lesion seen on CT, GI recommended MRI for further evaluation, CEA, AFP, hep panel sent Patient denied IV drug use, some history of risky / unprotected sex, denies any known contact with hep+ or hiv+ Patient with family historymaternal aunt and great-grandmother with Crohn's She has had some mild pains over several months, which is concerning for possible inflammatory bowel disease As far as alcohol withdrawal, patient has significantly improved, minimal symptoms, continue with as needed Ativan at a lower dose Downgraded from ICU on 08/23 IV fluids discontinued on 08/25, 1 dose of IV Lasix given on 08/26. Patient responded well, diuresed well, breathing more comfortably VTE: lovenox Code: full Dispo: Anticipate home in 1-2 days Time spent managing patient's care: 35 minutes
[2021-08-29] MEDS: PIPER TAZO 3.375 GM in NA CHLORIDE 0.9% 100 ML IV SCH ×3 (00:28→16:41)
[2021-08-29] MEDS: clonazePAM 0.5 MG TAB PO PRN ×3 (05:27→23:00)
[2021-08-29 06:09] LABS: Absolute Lymphocytes (CBC) 0.7 K/uL (0.7-4.9); Basophils % 1.7 % (0-1.3); Hematocrit 33.1 % (36.0-45.0); MPV 7.3 fL (7.6-11.3); RBC Red Blood Cell Count 3.36 M/uL (3.86-4.86)
[2021-08-29 06:27] LABS: ALT/SGPT 58 U/L (12-78); AST/SGOT 40 U/L (15-37); Albumin 3.1 g/dL (3.4-5.0); Alkaline Phosphatase 65 U/L (45-117); BUN Blood Urea Nitrogen 1 mg/dL (7-18); Bicarbonate 27 mmol/L (21-32); Bilirubin Total 0.6 mg/dL (0.2-1.0); Glucose Level 90 mg/dL (74-106); Magnesium 1.9 mg/dL (1.8-2.4); Potassium 3.4 mmol/L (3.5-5.1); Protein, Total 5.9 g/dL (6.4-8.2); Sodium Level 143 mmol/L (136-145)
[2021-08-29 06:29] LABS: C-Reactive Protein < 2.90 mg/L (<3.00)
[2021-08-29 07:38] LABS: Blood Morphology Comment NOTED (NOT SEEN); Platelet Estimate ADEQ; White Blood Cell Scan OK (OK)
[2021-08-29 07:39] LABS: Anisocytosis 2+; Macrocytosis 2+
[2021-08-29] MEDS: FOLIC ACID 1 MG TABLET PO SCH (08:22)
[2021-08-29] MEDS: THIAMINE HCL 100 MG TABLET PO SCH (08:22)
[2021-08-29] MEDS: LACTOBACILLUS/ACIDOPHILUS TAB PO SCH ×2 (08:22→19:52)
[2021-08-29] MEDS: HYDROCODONE/APAP 5/325 MG TAB PO PRN ×2 (08:23→19:52)
[2021-08-29] MEDS ORDERED: POTASSIUM CL SA 10 MEQ TAB PO ONE ×2 (09:00→20:00)
[2021-08-29] MEDS: LORazepam 2 MG/ML VIAL IV PRN (11:03)
[2021-08-29] MEDS: ONDANSETRON 4 MG/2 ML VIAL IV PRN (11:06)
[2021-08-29] MEDS: MORPHINE 2 MG/ML SYR IV PRN (13:44)
--- NOTE | 2021-08-29 14:40 | P.PN ---
Subjective Date of Service: 08/29/21 Primary Care Provider: Dr. Bradley Chief Complaint: Alcohol withdrawal, colitis, intractable vomiting Patient doing better today. She has tolerated liquid diet. She is having less bowel movement/diarrhea, and she denies abdominal pain. Physical Examination - Vital Signs Temperature: 97.9 F Blood Pressure: 174/105 Pulse: 91 Respirations: 19 Pulse Ox (%): 98 - Physical Exam General: Alert, In no apparent distress, Oriented x3 HEENT: Mucous membr. moist/pink Neck: JVD not distended Respiratory: Clear to auscultation bilaterally, Normal air movement Cardiovascular: No edema, Regular rate/rhythm, Normal S1 S2 Gastrointestinal: Normal bowel sounds, Soft and benign, Non-distended, No tenderness Musculoskeletal: No swelling Integumentary: No rashes Neurological: Normal strength at 5/5 x4 extr Assessment And Plan - Plan Problem List: Abdominal pain, intractable nausea/vomiting secondary to moderate ascending/transverse colitis ETOH withdrawal/abuse Dyspnea on Exertion Family history of Crohn's disease Continue Zosyn Admission CT abd/pelvis: ascending/transverse colitis Abdominal pain significantly improved today. Patient is tolerating liquid diet without nausea or vomiting. Diarrhea has also improved Patient seen by GI. Colonoscopy revealed 1.5 cm polyp that was removed. GI felt colitis was more likely infectious, but biopsies were taken and sent. IBD panel sent given family historymaternal aunt and great-grandmother with Crohn's. Biopsy results are pending. Liver lesion seen on CT, MRI of the abdomen: 2 small lesions probably hemangiomas. CEA is negative. Follow AFP. No alcohol withdrawal symptoms today. Patient has improved clinically. Continue with as needed Ativan. Advanced diet as tolerated.
[2021-08-29] MEDS: ENSURE HIGH PROTEIN 237 ML CAN PO SCH (19:52)
[2021-08-30] MEDS: PIPER TAZO 3.375 GM in NA CHLORIDE 0.9% 100 ML IV SCH ×2 (00:07→11:30)
[2021-08-30 04:48] LABS: Absolute Lymphocytes (CBC) 0.9 K/uL (0.7-4.9); Basophils % 1.7 % (0-1.3); Hematocrit 31.4 % (36.0-45.0); Lymphocytes % 33.2 % (15.3-44.8); MPV 8.3 fL (7.6-11.3); RBC Red Blood Cell Count 3.15 M/uL (3.86-4.86)
[2021-08-30 05:12] LABS: Potassium 3.8 mmol/L (3.5-5.1)
[2021-08-30 05:21] LABS: Anisocytosis 2+; Blood Morphology Comment NOTED (NOT SEEN); Platelet Estimate ADEQ; White Blood Cell Scan OK (OK)
[2021-08-30] MEDS ORDERED: POTASSIUM CL SA 10 MEQ TAB PO ONE (09:00)
[2021-08-30] MEDS: FOLIC ACID 1 MG TABLET PO SCH (09:21)
[2021-08-30] MEDS: LACTOBACILLUS/ACIDOPHILUS TAB PO SCH (09:21)
[2021-08-30] MEDS: THIAMINE HCL 100 MG TABLET PO SCH (09:21)
[2021-08-30] MEDS: clonazePAM 0.5 MG TAB PO PRN (09:21)
[2021-08-30] MEDS: ENSURE HIGH PROTEIN 237 ML CAN PO SCH (09:22)
[2021-08-30] MEDS: MORPHINE 2 MG/ML SYR IV PRN (09:35)
[2021-08-30 09:53] VITALS: O2SAT 99
[2021-08-30] MEDS: HYDROCODONE/APAP 5/325 MG TAB PO PRN (11:43)
--- NOTE | 2021-08-30 13:12 | P.DS ---
Admission Date: 08/22/21 Discharge Date: 08/30/21 Primary Care Provider: Dr. Bradley Disposition: ROUTINE DISCHARGE Discharge Condition: FAIR Reason for Admission: Alcohol withdrawal, colitis, intractable vomiting Procedures: EGD and Colonoscopy. Brief History of Present Illness: 40-year-old female with history of GERD, anxiety, EtOH dependence presented to the emergency department for intractable nausea and vomiting. Patient admits to drinking rum daily, She reported she has been drinking approximately 24 to 36 ounces on a daily basis, last drink was 08/21/2021 at 130 0. Patient was evaluated in the emergency department labs were significant for sodium 136 chloride 97 GFR [address] abdomen pelvis demonstrates moderate inflammatory changes involving the transverse and ascending colon compatible with moderate colitis. Patient had tachycardic which did not respond to IV hydration. She was admitted for further management. Hospital Course: Problem List: Abdominal pain, intractable nausea/vomiting secondary to moderate ascending/transverse colitis ETOH withdrawal/abuse Dyspnea on Exertion Family history of Crohn's disease Patient admitted to the medical floor and started on IV Zosyn.. Admission CT abd/pelvis: ascending/transverse colitis. She received several days of IV antibiotic. Patient seen by GI. Colonoscopy revealed 1.5 cm polyp that was removed. GI felt colitis was more likely infectious, but biopsies were taken and sent. IBD panel sent given family historymaternal aunt and great-grandmother with Crohn's. Biopsy results does not suggest IBD. Polyps found on colonoscopy are Tubular adenoma and tubulovillous adenoma. Patient experienced diarrhea nausea and vomiting and abdominal pain. Her symptoms improved with treatment. The colitis noted on the CT scans likely infection in nature. Patient later tolerated liquid diet without nausea or vomiting. Diarrhea has also improved. She was treated for alcohol withdrawal with intermittent Ativan. Alcohol withdrawal symptoms resolved. Liver lesion seen on CT, MRI of the abdomen: 2 small lesions probably hemangiomas. CEA is negative. AFP is still pending to be followed. Patient has improved clinically and deemed stable for discharge She is to progress from full liquid thigh to solid diet as tolerated. Vital Signs/Physical Exam: Temp Pulse Resp BP Pulse Ox 96.9 F 85 17 165/109 H 99 08/30/21 08:00 08/30/21 09:27 08/30/21 08:00 08/30/21 09:27 08/30/21 08:00 General: Alert, In no apparent distress, Oriented x3 HEENT: Mucous membr. moist/pink Neck: JVD not distended Respiratory: Clear to auscultation bilaterally, Normal air movement Cardiovascular: No edema, Regular rate/rhythm, Normal S1 S2 Gastrointestinal: Normal bowel sounds, Soft and benign, Non-distended, No tenderness Musculoskeletal: No swelling Integumentary: No rashes Neurological: Normal strength at 5/5 x4 extr Laboratory Data at Discharge: WBC 2.80 K/uL (4.3-10.9) L D 08/30/21 04:26 Hgb 10.1 g/dL (12.0-15.0) L 08/30/21 04:26 Hct 31.4 % (36.0-45.0) L 08/30/21 04:26 Plt Count 206 K/uL (152-406) 08/30/21 04:26 Sodium 145 mmol/L (136-145) 08/30/21 04:26 Potassium 3.8 mmol/L (3.5-5.1) 08/30/21 04:26 BUN 3 mg/dL (7-18) L 08/30/21 04:26 Creatinine 0.80 mg/dL (0.55-1.3) 08/30/21 04:26 Glucose 94 mg/dL (74-106) 08/30/21 04:26 Phosphorus 4.1 mg/dL (2.5-4.9) 08/27/21 05:52 Magnesium 1.9 mg/dL (1.8-2.4) 08/29/21 05:58 Total Bilirubin 0.6 mg/dL (0.2-1.0) 08/29/21 05:58 AST 40 U/L (15-37) H 08/29/21 05:58 ALT 58 U/L (12-78) 08/29/21 05:58 Alkaline Phosphatase 65 U/L (45-117) 08/29/21 05:58 Lipase 139 U/L (73-393) 08/21/21 20:03 Home Medications: Duloxetine HCl [Cymbalta] 60 mg PO DAILY 08/23/21 Hydrocodone 5/APAP 325 [Lead 5/325*] 1 tab PO Q6H PRN #15 tab 08/30/21 Lactobacillus Acidophilus [Acidophilus] 1 each PO TID #90 capsule 08/30/21 Thiamine HCl [Vitamin B-1*] 100 mg PO DAILY #30 tablet 08/30/21 Trazodone [Desyrel*] 50 mg PO BEDTIME PRN PRN #30 tablet 08/30/21 New Medications: Lactobacillus Acidophilus [Acidophilus] 1 each PO TID #90 capsule Trazodone [Desyrel*] 50 mg PO BEDTIME PRN PRN #30 tablet PRN Reason: Insomnia Hydrocodone 5/APAP 325 [Lead 5/325*] 1 tab PO Q6H PRN #15 tab PRN Reason: Pain Scale 5-7 (Moderate) Thiamine HCl [Vitamin B-1*] 100 mg PO DAILY #30 tablet Diet: Regular (Start from full liquid and progress to GI soft as tolerated.) Activity: Ad ander Followup: Clyde Bradley DO [Primary Care Provider] - 1-2 Weeks James Munoz MD [ASSOCIATE-ACTIVE - CAN ADMIT] - 1-2 Weeks Time spent managing pt's care (in minutes): 40
[2021-08-30] MEDS ORDERED: chlordiazePOXIDE HCl 25 MG CAP PO ONE (13:31)
[2021-08-30] MEDS: ONDANSETRON 4 MG/2 ML VIAL IV PRN (14:11)
[2021-08-30 14:12] VITALS: BP 165/105; TEMP 97.5
--- NOTE | 2021-08-30 14:28 | P.PN ---
Subjective Date of Service: 08/30/21 Primary Care Provider: Dr. Bradley Chief Complaint: Alcohol withdrawal, colitis, intractable vomiting Subjective: Improving (Tolerating po diet. No N/V. Anxious with EtOH withrawal.) Review of Systems 10-point ROS is otherwise unremarkable General: Weakness, Malaise (improving) Physical Examination - Vital Signs Temperature: 97.5 F Blood Pressure: 165/105 Pulse: 90 Respirations: 18 Pulse Ox (%): 99 - Physical Exam General: Alert, In no apparent distress, Oriented x3, Cooperative HEENT: Atraumatic, Normocephalic, PERRLA, EOMI Neck: Supple Respiratory: Normal air movement Cardiovascular: Normal pulses Gastrointestinal: Soft and benign, No tenderness, No rebound, No guarding Neurological: Normal speech, Normal strength at 5/5 x4 extr Assessment And Plan - Current Problems (Diagnosis) (1) Alcohol abuse Current Visit: Yes Status: Acute (2) Alcohol withdrawal hallucinosis Current Visit: Yes Status: Acute (3) Colitis Current Visit: Yes Status: Acute (4) Abnormal CT of the abdomen Current Visit: Yes Status: Acute (5) Anasarca Current Visit: Yes Status: Acute (6) Neutropenia Current Visit: Yes Status: Acute (7) Fatty liver Current Visit: Yes Status: Acute - Plan REC: 1) po antibiotics for 5 days on discharge 2) BDZ prn for 4 more days on discharge 3) GI clinic f/u for probable infectious colitis, fatty liver, EtOH disorder, anasarca from IVFs & probable liver disease
[2021-08-31 04:11] LABS: HBsAG Nonreactive (Nonreactive)
[2021-08-31] MEDS ORDERED: DULOXETINE 30 MG CAP PO SCH (09:00)
== END 2021-08-30 16:08 | disposition home or self-care (01) | DRG 392 ==
LOC: ER 19:26 → ERHOLD 08-22 00:47 → 2ND 08-23 19:43
PROVIDERS: ADMIT Hospitalist; ATTEND Hospitalist
PROC: 0DBM8ZX Excision of Descending Colon, Via Natural or Artificial Opening Endoscopic, Diagnostic (ICD-10-PCS; 2021-08-27)
PROC: 0DBB8ZX Excision of Ileum, Via Natural or Artificial Opening Endoscopic, Diagnostic (ICD-10-PCS; 2021-08-27)
PROC: 0DBP8ZX Excision of Rectum, Via Natural or Artificial Opening Endoscopic, Diagnostic (ICD-10-PCS; 2021-08-27)
PROC: 0DBF8ZX Excision of Right Large Intestine, Via Natural or Artificial Opening Endoscopic, Diagnostic (ICD-10-PCS; 2021-08-27)
PROC: 0DBG8ZX Excision of Left Large Intestine, Via Natural or Artificial Opening Endoscopic, Diagnostic (ICD-10-PCS; 2021-08-27)
PROC: 0DBM8ZX Excision of Descending Colon, Via Natural or Artificial Opening Endoscopic, Diagnostic (ICD-10-PCS; principal; 2021-08-27 09:15)
DX: A09 Infectious gastroenteritis and colitis, unspecified (principal); F10.139 Alcohol abuse with withdrawal, unspecified; R06.00 Dyspnea, unspecified; D12.4 Benign neoplasm of descending colon; D70.9 Neutropenia, unspecified; R60.1 Generalized edema; K21.9 Gastro-esophageal reflux disease without esophagitis; D18.09 Hemangioma of other sites; K64.8 Other hemorrhoids; K63.5 Polyp of colon; K70.0 Alcoholic fatty liver; Z20.822 Contact with and (suspected) exposure to COVID-19
CPT/HCPCS: 36415; 71275; 74177; 74250; 80048; 80053; 80074; 80076; 80307; 80320; 81001; 81003; 81025; 82105; 82378; 83690; 83735; 83970; 84100; 84132; 84145; 85025; 85027; 86140; 86671; 87045; 87046; 87177; 87209; 87324; 87449; 88305; 89055; 96365; 96366; 96367; 96372; 96375; 97161; 99285; C9113; J0360; J0500; J1170; J1650; J1940; J2270; J2405; J2543; J2704; J2765; J3360; J3411; J3475; J3480; J7030; J7050; J7120; Q9967; U0003

== ENCOUNTER 2022-01-12 01:48 | Emergency (ER) | payer OTHER ==
--- OUTSIDE RECORDS SUMMARY | 2022-01-12 01:52 | XMS REPORT | Continuity of Care Document ---
:1980 Author Organization [facility] t Address [address] [place] [address] Care Team Providers Name Role Phone Pcp, Does Not Have A Primary Care Physician Rickey Bradley Attending Clinician Unavailable Doctor Unassigned, Name Attending Clinician Unavailable Modesta LACEY Attending Clinician Unavailable Bruce THRASHER S Attending Clinician Maurice BARRERA Attending Clinician Unavailable Payers Payer Name Policy Type Policy Number Effective Date Expiration Date S ource Problems Condition Condition Condition Status Onset Resolution Last Treating Co mments Source Name Details Category Date Date Treatment Clinician Date No known No known Disease Unive rs active active ity of problems problems [facility] Allergies, Adverse Reactions, Alerts Allergy Allergy Status Severity Reaction(s) Onset Inactive Treating Comm ents Source Name Type Date Date Clinician NO KNOWN Drug Active Univers ALLERGIE Class ity of S [facility] Social History Social Habit Start Date Stop Date Quantity Comments Source Exposure to Not sure University of SARS-CoV-2 [facility] (event) [place] Tobacco use and 2021-04-21 2021-04-21 Never used Universit y of exposure 00:00:00 00:00:00 [facility] Alcohol intake 2021-04-21 2021-04-21 Current drinker Unive rsity of 00:00:00 00:00:00 of alcohol [facility] (finding) [place] Sex Assigned At [birth year] Universit y of 00:00:00 00:00:00 [facility] Smoking Status Start Date Stop Date Source Current every day smoker 2021-04-21 00:00:00 Uni versity [facility] Medications Ordered Filled Start Stop Current Ordering Indication Dosage Frequency Signature Comments Components Source Medication Medication Date Date Medication? Clinician (SIG) Name Name DULoxetine Yes 120mg Take 120 [place] 60 mg 5-28 mg by ity of capsule 13:39: mouth. [address] Branch DULoxetine Yes 120mg Take 120 [place] 60 mg 5-28 mg by ity of capsule 13:39: mouth. [address] DULoxetine Yes 120mg Take 120 [place] 60 mg 5-28 mg by ity of capsule 13:39: mouth. [address] DULoxetine Yes 120mg Take 120 [place] 60 mg 5-28 mg by ity of capsule 08:39: mouth. [address] traMADoL 50 Yes Univer s mg tablet 5-19 ity of 00:00: [facility] [place] traMADoL 50 0 Yes Univer s mg tablet 5-19 ity of 00:00: [facility] traMADoL 50 0 Yes Univer s mg tablet 5-19 ity of 00:[place]: [place] [facility] traMADoL 50 0 Yes Univer s mg tablet 5-19 ity of 00:00: [address] Vital Signs Vital Name Observation Time Observation Value Comments Source Systolic blood 2021-04-21 13:41:00 162 mm[Hg] Univer sity of [facility] Branch Diastolic blood 2021-04-21 13:41:00 111 mm[Hg] Unive rsity of [facility] Heart rate 2021-04-21 13:41:00 94 /min [facility] Body height 2021-04-21 13:37:00 172.7 cm [facility] Body weight 2021-04-21 13:37:00 88.451 kg [facility] BMI 2021-04-21 13:37:00 29.65 kg/m2 [facility] Systolic blood 2021-04-21 13:41:00 162 mm[Hg] Jorge moniquezane [facility] Diastolic blood 2021-04-21 13:41:00 111 mm[Hg] [facility] Heart rate 2021-04-21 13:41:00 94 /min [facility] Body height 2021-04-21 13:37:00 172.7 cm [facility] Body weight 2021-04-21 13:37:00 88.451 kg [facility] BMI 2021-04-21 13:37:00 29.65 kg/m2 [facility] Procedures Procedure Date / Time Performed Performing Clinician Sourc e EXTERNAL PROVIDER 2021-10-25 06:01:00 Doctor Unassigned, No [facility] XR WRIST 3+ VW LEFT 2021-04-21 15:19:01 Caleb Barrera [facility] Encounters Start End Encounter Admission Attending Care Care Encounter Source Date/Time Date/Time Type Type Clinicians Facility Department ID 2021-12-20 Outpatient Bradley, STLMLC [facility] 14:13:32 [place] [id number] [facility] 2021-12-20 Outpatient Bradley, STLMLC [facility] 14:08:44 [place] [id number] [facility] 2021-10-25 2021-10-25 Orders Doctor GARZA [id number] Univers 00:00:00 00:00:00 Only Unassigned, MARLENE [id number] ity of [facility] [id number] [place] [id number] [place] [address] Branch 2021-10-16 2021-10-16 ambulatory STLMLC [facility] [id number] [facility] 2021-10-09 2021-10-09 ambulatory STLMLC [facility] [id number] [facility] 2021-09-29 2021-09-29 ambulatory STLMLC [facility] [id number] [facility] 2021-04-28 2021-04-28 Outpatient Gilbert DEEPTHI [facility] [id number] Univers 09:00:00 09:00:00 KP [id number] [facility] 2021-04-28 2021-04-28 [facility] [id number] Univers 09:00:00 09:00:00 KP [facility] 2021-04-21 2021-04-21 [facility] [id number] 09:56:50 23:59:00 Encounter Caleb [place] [id number] [place] [id number] [place] [id number] 2021-04-21 2021-04-21 [facility] [id number] Univers 09:56:50 23:59:00 Encounter Caleb S [place] [id number] ity of [id number] [place] [id number] [facility] [address]07 [place] 2021-04-21 2021-04-21 [facility] [id number] Univers 10:45:00 10:45:00 CALEB [id number] [facility] 2021-04-21 2021-04-21 [facility] [id number] 08:27:38 08:42:38 Visit [facility] [id number] Surgical [id number] Specialti [id number] es [address] [place] 2021-04-21 2021-04-21 Office [facility] [id number] Univers 08:27:38 08:42:38 Visit [facility] [id number] it y of Surgical [id number] [place] Specialti [id number] Me dical es 198 [facility] 2021-04-21 2021-04-21 Outpatient Gilbert BARRERA [facility] [id number] Univers 08:15:00 08:15:00 CALEB ity of [facility] Results Test Description Test Time Test Comments Results Result Sourc e Comments XR WRIST 3+ VW 2021-03-26 No appreciable Univer sity of LEFT 8 fracture lines. RL: [facility] 18:16:14 6200 Electronically Branc h signed by Cedric Somers MD at 04/21/2021 1:16 PM CLINICAL HISTORY:Pain. COMPARISON:none TECHNIQUE:XR WRIST 3+ VW LEFT performed. Technical Quality: Adequate FINDINGS:There are no appreciable fracture lines or subluxations. ?There is grossanatomic alignment. ?No appreciable joint effusion. [facility]iant Results Inft User - 04/21/2021 1:17 PM CDT CLINICAL HISTORY:Pain.COMPAR JR:noneTECHNIQUE: XR WRIST 3+ VW LEFT performed. Technical Quality: AdequateFINDINGS:Th ere are no appreciable fracture lines or subluxations. There is grossanatomic alignment. No appreciable joint effusion.IMPRESSION No appreciable fracture lines.RL: [id number]
[2022-01-12] MEDS ORDERED: THIAMINE 200 MG/2 ML INJ ONE (02:25)
[2022-01-12] MEDS ORDERED: MORPHINE 4 MG/ML SYR ONE (02:26)
[2022-01-12] MEDS ORDERED: ONDANSETRON 4 MG/2 ML VIAL ONE (02:26)
[2022-01-12] MEDS ORDERED: NA CHLORIDE 0.9% 1,000 ML ONE (02:26)
[2022-01-12] MEDS ORDERED: FAMOTIDINE 20 MG/2 ML VIAL IV ONE (02:26)
[2022-01-12 02:51] LABS: Urine Blood Negative (Negative); Urine Glucose Negative (Negative); Urine Protein 1+ (Negative); Urine Specific Gravity >=1.030 (1.005-1.030)
[2022-01-12 03:20] LABS: Urine Specific Gravity/Preg >1.030 (1.005-1.030)
[2022-01-12] MEDS ORDERED: CEFTRIAXONE 1000 MG/VIAL ONE (03:41)
[2022-01-12 03:57] LABS: Hematocrit 33.1 % (36.0-45.0); Lymphocytes % 36.9 % (15.3-44.8); MPV 7.1 fL (7.6-11.3); RBC Red Blood Cell Count 3.92 M/uL (3.86-4.86)
[2022-01-12 04:32] LABS: ALT/SGPT 43 U/L (12-78); AST/SGOT 102 U/L (15-37); Albumin 3.4 g/dL (3.4-5.0); Alkaline Phosphatase 81 U/L (45-117); BUN Blood Urea Nitrogen 10 mg/dL (7-18); Bicarbonate 18 mmol/L (21-32); Bilirubin Direct < 0.1 mg/dL (0-0.2); Bilirubin Total 0.3 mg/dL (0.2-1.0); Glucose Level 113 mg/dL (74-106); Lipase 122 U/L (73-393); Potassium 3.7 mmol/L (3.5-5.1); Protein, Total 7.3 g/dL (6.4-8.2); Sodium Level 140 mmol/L (136-145)
--- NOTE | 2022-01-12 06:20 | ER ---
Nurse's Notes [facility] Name: Pam Restrepo Age: 41 yrs Sex: Female : 1980 Arrival Date: 01/12/2022 Time: 01:51 Bed 12 Private MD: Diagnosis: Abdominal pain, unspecified;Alcohol abuse with intoxication;Hepatomegaly, not elsewhere classified;Congenital hiatus hernia Presentation: 01/12 02:07 Chief complaint: Patient states: Right upper quad pain, radiates to the back started sf1 yesterday, c/o diarrhea. Coronavirus screen: Vaccine status: Patient reports receiving the 2nd dose of the covid vaccine. Client denies travel out of the [place] in the last 14 days. Ebola Screen: Patient negative for fever greater than or equal to 101.5 degrees Fahrenheit, and additional compatible Ebola Virus Disease symptoms Patient denies exposure to infectious person. Patient denies travel to an Ebola-affected area in the 21 days before illness onset. Initial Sepsis Screen: Does the patient meet any 2 criteria? No. Patient's initial sepsis screen is negative. Does the patient have a suspected source of infection? No. Patient's initial sepsis screen is negative. Risk Assessment: Do you want to hurt yourself or someone else? Patient reports no desire to harm self or others. Onset of symptoms was January 11, 2022. 02:07 Method Of Arrival: Ambulatory sf1 02:07 Acuity: KRISTEN 3 sf1 Triage Assessment: 02:11 General: Appears uncomfortable, Behavior is calm, cooperative. Pain: Complains of pain sf1 in right upper quadrant. GI: Reports upper abdominal pain, diarrhea. Historical: - Home Meds: 02:11 None [Active]; sf1 - PMHx: 02:11 acid reflux; Anxiety; colitis; sf1 - PSHx: 02:11 Appendectomy; sf1 - Immunization history:: Adult Immunizations Client reports receiving the 2nd dose of the Covid vaccine, Flu vaccine is up to date. - Social history:: Smoking status: Patient/guardian denies using tobacco, Stopped _ months ago 6 Patient uses alcohol, on a daily basis. street drugs, marijuana. - Family history:: not pertinent. Screenin:15 Abuse screen: Denies threats or abuse. Nutritional screening: No deficits noted. sf1 Tuberculosis screening: No symptoms or risk factors identified. Fall Risk None identified. Vital Signs: 02:07 BP 154 / 102; Pulse 135; Resp 22; Temp 99.1(O); Pulse Ox 98% on R/A; Weight 86.18 kg; sf1 Height 5 ft. 7 in. (170.18 cm); Pain 7/10; 04:42 BP 137 / 89; Pulse 100; Resp 18; Pulse Ox 97% on R/A; sf1 06:17 BP 136 / 89; Pulse 99; Resp 18; Pulse Ox 100% on R/A; sf1 02:07 Body Mass Index 29.76 (86.18 kg, 170.18 cm) sf1 ED Course: 01:51 Patient arrived in ED. wm 02:01 Justo Lay MD is Attending Physician. flash 02:11 Triage completed. sf1 02:11 Arm band placed on right wrist. sf1 02:15 Placed in gown. Bed in low position. Call light in reach. sf1 02:15 No provider procedures requiring assistance completed. sf1 02:19 Siobhan Gill RN is Primary Nurse. sf1 02:20 Inserted saline lock: 20 gauge in right antecubital area, using aseptic technique. ds4 Blood collected. 02:38 Basic Metabolic Panel Sent. sf1 02:38 CBC with Diff Sent. sf1 02:38 Hepatic Function Sent. sf1 02:38 Lipase Sent. sf1 02:38 ETOH Level Sent. sf1 02:59 Door closed. Noise minimized. Lights dimmed. Warm blanket given. sf1 05:19 CT Abd/Pelvis - IV Contrast Only In Process Unspecified. EDMS 06:19 Alex Shipley MD is Referral Physician. flash Administered Medications: 02:37 Drug: morphine 4 mg Route: IVP; Site: right antecubital; sf1 02:37 Drug: Zofran (Ondansetron) 4 mg Route: IVP; Site: right antecubital; sf1 02:37 Drug: Pepcid (famotidine) 20 mg Route: IVP; Site: right antecubital; sf1 02:37 Drug: Thiamine 100 mg Route: IV; Rate: per protocol; Site: right antecubital; sf1 02:38 Drug: NS 0.9% 1000 ml Route: IV; Rate: 1 bolus; Site: right antecubital; sf1 03:43 Drug: Rocephin (cefTRIAXone) 1 grams Route: IV; Rate: per protocol; Site: right sf1 antecubital; Outcome: 06:20 Discharge ordered by MD. vidales 06:29 Patient left the ED. sf1 Signatures: Dispatcher [employer] EDMS Justo Lay MD MD cha Swanson, Donovan ds4 Shanon Beauchamp Samantha, RN RN sf1 Corrections: (The following items were deleted from the chart) 02:14 02:11 Home Meds: Cymbalta Oral [Inactive]; sf 02:14 02:11 Home Meds: Nexium Oral [Inactive]; sf1 02:14 02:11 Home Meds: Vyvanse Oral [Inactive]; sf1 sf1
--- NOTE | 2022-01-12 06:20 | EDPHYS ---
Physician Documentation [facility] Name: Pam Restrepo Age: 41 yrs Sex: Female : 1980 Arrival Date: 01/12/2022 Time: 01:51 Bed 12 Private MD: ED Physician Justo Lay HPI: 01/12 02:20 This 41 yrs old Female presents to ER via Ambulatory with complaints of flash Epigastric Pain. 02:20 The patient presents with abdominal pain in the upper abdomen, in the lower abdomen. flash Onset: The symptoms/episode began/occurred 2 day(s) ago. The patient presents to the emergency department with nausea, vomiting, abdominal pain, of the posterior aspect of right lateral abdomen, posterior aspect of left lateral abdomen, right upper quadrant and right lower quadrant. Onset: The symptoms/episode began/occurred 2 day(s) ago. Possible causes: unknown. The symptoms are aggravated by nothing. The symptoms are alleviated by nothing. Associated signs and symptoms: The patient has no apparent associated signs or symptoms. The symptoms do not radiate. Modifying factors: The symptoms are alleviated by nothing, the symptoms are aggravated by nothing. Historical: - Home Meds: 02:11 None [Active]; sf1 - PMHx: 02:11 acid reflux; Anxiety; colitis; sf1 - PSHx: 02:11 Appendectomy; sf1 - Immunization history:: Adult Immunizations Client reports receiving the 2nd dose of the Covid vaccine, Flu vaccine is up to date. - Social history:: Smoking status: Patient/guardian denies using tobacco, Stopped _ months ago 6 Patient uses alcohol, on a daily basis. street drugs, marijuana. - Family history:: not pertinent. ROS: 02:20 Constitutional: Negative for fever, chills, and weight loss, Eyes: Negative for injury, flash pain, redness, and discharge, ENT: Negative for injury, pain, and discharge, Neck: Negative for injury, pain, and swelling, Respiratory: Negative for shortness of breath, cough, wheezing, and pleuritic chest pain, Back: Negative for injury and pain, : Negative for injury, bleeding, discharge, and swelling, MS/Extremity: Negative for injury and deformity, Skin: Negative for injury, rash, and discoloration, Neuro: Negative for headache, weakness, numbness, tingling, and seizure, Psych: Negative for depression, anxiety, suicide ideation, homicidal ideation, and hallucinations, Allergy/Immunology: Negative for hives, rash, and allergies, Endocrine: Negative for neck swelling, polydipsia, polyuria, polyphagia, and marked weight changes, Hematologic/Lymphatic: Negative for swollen nodes, abnormal bleeding, and unusual bruising. 02:20 Cardiovascular: Positive for palpitations. 02:20 Abdomen/GI: Positive for abdominal pain, nausea and vomiting, abdominal cramps, of the right upper quadrant and right lower quadrant. Exam: 02:20 Constitutional: This is a well developed, well nourished patient who is awake, alert, flash and in no acute distress. Head/Face: Normocephalic, atraumatic. Eyes: Pupils equal round and reactive to light, extra-ocular motions intact. Lids and lashes normal. Conjunctiva and sclera are non-icteric and not injected. Cornea within normal limits. Periorbital areas with no swelling, redness, or edema. ENT: Nares patent. No nasal discharge, no septal abnormalities noted. Tympanic membranes are normal and external auditory canals are clear. Oropharynx with no redness, swelling, or masses, exudates, or evidence of obstruction, uvula midline. Mucous membranes moist. Neck: Trachea midline, no thyromegaly or masses palpated, and no cervical lymphadenopathy. Supple, full range of motion without nuchal rigidity, or vertebral point tenderness. No Meningismus. Chest/axilla: Normal chest wall appearance and motion. Nontender with no deformity. No lesions are appreciated. Abdomen/GI: Soft, non-tender, with normal bowel sounds. No distension or tympany. No guarding or rebound. No evidence of tenderness throughout. Back: No spinal tenderness. No costovertebral tenderness. Full range of motion. Skin: Warm, dry with normal turgor. Normal color with no rashes, no lesions, and no evidence of cellulitis. Neuro: Awake and alert, GCS 15, oriented to person, place, time, and situation. Cranial nerves II-XII grossly intact. Motor strength 5/5 in all extremities. Sensory grossly intact. Cerebellar exam normal. Normal gait. Psych: Awake, alert, with orientation to person, place and time. Behavior, mood, and affect are within normal limits. 02:20 Cardiovascular: Rate: tachycardic, Rhythm: regular, Pulses: Pulses are 4+ in bilateral radial, brachial, femoral, popliteal, posterior tibial and and dorsalis pedis arteries.. Heart sounds: normal, Edema: is not appreciated, JVD: is not appreciated. Vital Signs: 02:07 BP 154 / 102; Pulse 135; Resp 22; Temp 99.1(O); Pulse Ox 98% on R/A; Weight 86.18 kg; sf1 Height 5 ft. 7 in. (170.18 cm); Pain 7/10; 04:42 BP 137 / 89; Pulse 100; Resp 18; Pulse Ox 97% on R/A; sf1 06:17 BP 136 / 89; Pulse 99; Resp 18; Pulse Ox 100% on R/A; sf1 02:07 Body Mass Index 29.76 (86.18 kg, 170.18 cm) sf1 MDM: 02:01 Patient medically screened. flash 02:23 Differential diagnosis: pancreatitis, diverticulitis, viral gastroenteritis, flash gastroenteritis, bowel obstruction, cholecystitis, Cholelithiasis, Dysmenorrhea, gastritis, Hepatitis, non-specific abd pain, pancreatitis, Peptic Ulcer Disease, Pyelonephritis, urinary tract infection. Data reviewed: vital signs, nurses notes, lab test result(s), radiologic studies, CT scan. Data interpreted: surveillance system monitor: rate is 135 beats/min, rhythm is regular, Pulse oximetry: on room air is 98 %. Test interpretation: by ED physician or midlevel provider:. Counseling: I had a detailed discussion with the patient and/or guardian regarding: the historical points, exam findings, and any diagnostic results supporting the discharge/admit diagnosis, lab results, radiology results. 01/12 02:19 Order name: Basic Metabolic Panel; Complete Time: 04:39 [facility] 01/12 02:19 Order name: CBC with Diff; Complete Time: 04:28 flash 01/12 02:19 Order name: Hepatic Function; Complete Time: 04:39 flash 01/12 02:19 Order name: Lipase; Complete Time: 04:39 flash 01/12 02:19 Order name: ETOH Level; Complete Time: 04:39 [facility] 01/12 02:50 Order name: Urine Dipstick-Ancillary; Complete Time: 03:33 EDMS 01/12 02:19 Order name: CT Abd/Pelvis - IV Contrast Only flash 01/12 03:06 Order name: Urine --Ancillary (enter results); Complete Time: 03:33 mw2 01/12 02:19 Order name: IV Saline Lock; Complete Time: 02:20 [facility] 01/12 02:19 Order name: Labs collected and sent; Complete Time: 02:20 [facility] 01/12 02:19 Order name: EKG; Complete Time: 02:19 [facility] 01/12 02:19 Order name: EKG - Nurse/Tech; Complete Time: 02:38 [facility] 01/12 02:19 Order name: Urine Dipstick-Ancillary (obtain specimen); Complete Time: 02:59 [facility] 01/12 02:19 Order name: Urine Test (obtain specimen); Complete Time: 02:59 [facility] Administered Medications: 02:37 Drug: morphine 4 mg Route: IVP; Site: right antecubital; sf1 02:37 Drug: Zofran (Ondansetron) 4 mg Route: IVP; Site: right antecubital; sf1 02:37 Drug: Pepcid (famotidine) 20 mg Route: IVP; Site: right antecubital; sf1 02:37 Drug: Thiamine 100 mg Route: IV; Rate: per protocol; Site: right antecubital; sf1 02:38 Drug: NS 0.9% 1000 ml Route: IV; Rate: 1 bolus; Site: right antecubital; sf1 03:43 Drug: Rocephin (cefTRIAXone) 1 grams Route: IV; Rate: per protocol; Site: right sf1 antecubital; Disposition Summary: 01/12/22 06:20 Discharge Ordered Location: Home flash Problem: new flash Symptoms: have improved flash Condition: Stable flash Diagnosis - Abdominal pain, unspecified flash - Alcohol abuse with intoxication flash - Hepatomegaly, not elsewhere classified flash - Congenital hiatus hernia flash Followup: flash - With: Private Physician - When: 2 - 3 days - Reason: Recheck today's complaints, Continuance of care, Re-evaluation by your physician Followup: flash - With: - When: 2 - 3 days - Reason: Recheck today's complaints, Re-evaluation by your physician Discharge Instructions: - Discharge Summary Sheet flash - Abdominal Pain, Adult flash - Alcohol Intoxication flash - Alcohol Intoxication, Cppo-ry-[id number] flash - Abdominal Pain, Adult, Nakd-pu-[id number] flash Forms: - Medication Reconciliation Form flash - Thank You Letter flash - Antibiotic Education flash - Prescription Opioid Use [facility] Prescriptions: - ondansetron 4 mg Oral tablet,disintegrating - place 1 tablet by TRANSLINGUAL route every 8 hours; 20 tablet; Refills: 0, [facility] Product Selection Permitted - Pepcid 20 mg Oral Tablet - take 1 tablet by ORAL route every 12 hours for 30 days; 60 tablet; Refills: 0, [facility] Product Selection Permitted - dicyclomine 20 mg Oral Tablet - take 1 tablet by ORAL route 4 times per day; 28 tablet; Refills: 0, Product [facility] Selection Permitted Signatures: Dispatcher [employer] Justo Foster MD MD cha Fillers, Samantha RN RN sf1 Corrections: (The following items were deleted from the chart) 02:14 02:11 Home Meds: Cymbalta Oral [Inactive]; 1 02:14 02:11 Home Meds: Nexium Oral [Inactive]; 1 sf1 02:14 02:11 Home Meds: Vyvanse Oral [Inactive]; 1 1
[2022-01-12 06:45] VITALS: TEMP 99.1
[2022-01-12 06:48] VITALS: BP 136/89; O2SAT 100
--- NOTE | 2022-01-12 11:55 | RAD REPORT ---
EXAM DESCRIPTION: CT - Abdomen Pelvis W Contrast - 01/12/2022 6:45 am CLINICAL HISTORY: ABD PAIN COMPARISON: None. TECHNIQUE: CT ABDOMEN PELVIS WITH IV CONTRAST on 01/12/2022 2:19 AM GROUNDS RESTORATION SPECIALIST This exam was performed according to our departmental dose-optimization program, which includes autom ated exposure control, adjustment of the mA and/or kV according to patient size and/or use of iterati ve reconstruction technique. FINDINGS: Lower lungs are clear. Abdomen: Liver is diffusely enlarged and fatty in attenuation. There is no biliary dilatation. There is a moderate hiatal hernia. Gallbladder is normal in appearance. The pancreas and spleen are normal in appearance. The adrenal glands and kidneys are unremarkable. Abdominal aorta is normal in course and caliber without aneurysm. There is no free air. There is no r etroperitoneal adenopathy. Pelvis: There is no bowel obstruction. Urinary bladder is unremarkable. There is no free fluid. Uteru s is normal in size. Appendix is not clearly seen. Skeleton: There are no acute osseous findings. No suspicious bony lesions. IMPRESSION: Hepatomegaly with hepatic steatosis. Hiatal hernia. Electronically signed by: Nixon López MD 01/12/2022 6:06 AM [employer]OUNDS RESTORATION SPECIALIST Due to temporary technical issues with the PACS/Fluency reporting system, reports are being signed by the in house radiologist without review as a courtesy to ensure prompt reporting. The interpreting r adiologist is fully responsible for the content of the report.
--- NOTE | 2022-01-12 13:04 | EKG ---
Test Date: 2022-01-12 Test Time: 02:27:10 Educational Psychology Teacher: ROBERTO CARLOS MEASUREMENT RESULTS: Intervals: Rate: 109 TN: 146 QRSD: 78 QT: 332 QTc: 447 [place]: P: 51 TN: 146 QRS: 51 T: 0 INTERPRETIVE STATEMENTS: Sinus tachycardia Otherwise normal ECG No previous ECG available for comparison Electronically Signed On 01-12-22 13:02:46 MECHANICAL INTEGRITY SPECIALIST by Marvin Welch
== END 2022-01-12 06:29 | disposition home or self-care (01) ==
LOC: ER 01:48
DX: R10.13 Epigastric pain (principal); F10.129 Alcohol abuse with intoxication, unspecified; R16.0 Hepatomegaly, not elsewhere classified; Q40.1 Congenital hiatus hernia
CPT/HCPCS: 93005; 85025; 80048; 36415; 80320; 81025; 80076; 81003; 83690; 74177; 96375; 96374; 99284; Q9967; J3411; J7030; J2405

== ENCOUNTER 2022-03-06 14:39 | Emergency (ER) | payer OTHER ==
--- OUTSIDE RECORDS SUMMARY | 2022-03-06 14:42 | XMS REPORT | Continuity of Care Document ---
:1980 Author Organization [facility] t Address [address] [place] [address] Care Team Providers Name Role Phone Pcp, Does Not Have A Primary Care Physician Rickey Bradley Attending Clinician Unavailable Doctor Unassigned, Name Attending Clinician Unavailable Modesta LACEY Attending Clinician Unavailable Luc THRASHER S Attending Clinician Maurice BARRERA Attending Clinician Unavailable Payers Payer Name Policy Type Policy Number Effective Date Expiration Date S ource Problems Condition Condition Condition Status Onset Resolution Last Treating Co mments Source Name Details Category Date Date Treatment Clinician Date No known No known Disease Unive rs active active ity of problems problems [facility] Allergies, Adverse Reactions, Alerts Allergy Allergy Status Severity Reaction(s) Onset Inactive Treating Comm ents Source Name Type Date Date Clinician NO KNOWN Drug Active Univers ALLERGIE Class ity of S [facility] Social History Social Habit Start Date Stop Date Quantity Comments Source Exposure to Not sure University of SARS-CoV-2 [facility] (event) [place] Tobacco use and 2021-04-21 2021-04-21 Never used Universit y of exposure 00:00:00 00:00:00 [facility] Alcohol intake 2021-04-21 2021-04-21 Current drinker Unive rsity of 00:00:00 00:00:00 of alcohol [facility] (finding) Branch [facility]igned At [birth year] [facility] Smoking Status Start Date Stop Date Source Current every day smoker 2021-04-21 00:00:00 Uni versity [facility] Medications Ordered Filled Start Stop Current Ordering Indication Dosage Frequency Signature Comments Components Source Medication Medication Date Date Medication? Clinician (SIG) Name Name DULoxetine Yes 120mg Take 120 Un bekah 60 mg 5-28 mg by ity of capsule 13:39: mouth. [address] Branch DULoxetine Yes 120mg Take 120 Un [place] 60 mg 5-28 mg by ity of capsule 13:39: mouth. [address] DULoxetine Yes 120mg Take 120 Un bek[place] 60 mg 5-28 mg by ity of capsule 13:39: mouth. [address] DULoxetine Yes 120mg Take 120 Un bek[place] 60 mg 5-28 mg by ity of capsule 08:39: mouth. [address] Branch traMADoL 50 Yes Univer s mg tablet 5-19 ity of 00:00: [place] [facility] Branch traMADoL 50 2020-0 Yes Univer s mg tablet 5-19 ity of 00:00: [place] [facility] Branch traMADoL 50 0 Yes Univer s mg tablet 5-19 ity of 00:00: [place] [facility] traMADoL 50 2020-0 Yes Univer s mg tablet 5-19 ity of 00:00: [address] Vital Signs Vital Name Observation Time Observation Value Comments Source Systolic blood 2021-04-21 13:41:00 162 mm[Hg] Univer sity of [facility] Branch Diastolic blood 2021-04-21 13:41:00 111 mm[Hg] Unive rsity of [facility] Heart rate 2021-04-21 13:41:00 94 /min [facility] Body height 2021-04-21 13:37:00 172.7 cm [facility] Body weight 2021-04-21 13:37:00 88.451 kg [facility] BMI 2021-04-21 13:37:00 29.65 kg/m2 [facility] Systolic blood 2021-04-21 13:41:00 162 mm[Hg] Jorge moniquezane [facility] Diastolic blood 2021-04-21 13:41:00 111 mm[Hg] [facility] Heart rate 2021-04-21 13:41:00 94 /min [facility] Body height 2021-04-21 13:37:00 172.7 cm [facility] Body weight 2021-04-21 13:37:00 88.451 kg [facility] BMI 2021-04-21 13:37:00 29.65 kg/m2 [facility] Procedures Procedure Date / Time Performed Performing Clinician Sourc e EXTERNAL PROVIDER 2021-10-25 06:01:00 Doctor Unassigned, No [facility] RECORDS [facility] XR WRIST 3+ VW LEFT 2021-04-21 15:19:01 Caleb Barrera [facility] Encounters Start End Encounter Admission Attending Care Care Encounter Source Date/Time Date/Time Type Type Clinicians Facility Department ID 2021-12-20 Outpatient Bradley, STLMLC [facility] 14:13:32 [place] [id number] [facility] 2021-12-20 Outpatient Bradley, STLMLC [facility] 14:08:44 [place] [id number] [facility] 2021-10-25 2021-10-25 Orders Doctor GARZA [id number] Univers 00:00:00 00:00:00 Only Unassigned, MARLENE [id number] [facility] [id number] [place] [phone] [address] 2021-10-16 2021-10-16 ambulatory STLMLC [facility] [id number] [facility] 2021-10-09 2021-10-09 ambulatory STLMLC [facility] [id number] [facility] 2021-09-29 2021-09-29 ambulatory STLMLC [facility]LMLC [id number] [facility] 2021-04-28 2021-04-28 Outpatient Gilbert [facility] [id number] Univers 09:00:00 09:00:00 KP [id number] [facility] 2021-04-28 2021-04-28 [facility] [id number] Univers 09:00:00 09:00:00 KP [facility] 2021-04-21 2021-04-21 [facility] [id number] 09:56:50 23:59:00 Encounter Caleb Giordanoton [id number] [place] [id number] [place] [id number] 2021-04-21 2021-04-21 [facility] [id number] Univers 09:56:50 23:59:00 Encounter Caleb Giordanoton [id number] ity of [id number] [id number] [place] [id number] [place] 2021-04-21 2021-04-21 [facility] [id number] Univers 10:45:00 10:45:00 CALEB [id number] [facility] 2021-04-21 2021-04-21 [facility] [id number] 08:27:38 08:42:38 Visit [facility] [id number] Surgical [id number] Specialti [id number] es [address] [place] [address] 2021-04-21 2021-04-21 [facility] [id number] Univers 08:27:38 08:42:38 Visit [facility] [id number] it y of Surgical [id number] [place] as Specialti [phone] Me dical es [address] [facility] 2021-04-21 2021-04-21 Outpatient Gilbert [facility] [id number] Univers 08:15:00 08:15:00 CALEB ity of [facility] Results Test Description Test Time Test Comments Results Result Sourc e Comments XR WRIST 3+ VW 2021-03-26 No appreciable Univer sity of LEFT 8 fracture lines. RL: [facility] 18:16:14 6200 Electronically Branc h signed by Cedric Somers MD at 04/21/2021 1:16 PM CLINICAL HISTORY:Pain. COMPARISON:none TECHNIQUE:XR WRIST 3+ VW LEFT performed. Technical Quality: Adequate FINDINGS:There are no appreciable fracture lines or subluxations. ?There is grossanatomic alignment. ?No appreciable joint effusion. [facility], Radiant Results Inft User - 04/21/2021 1:17 PM CDT CLINICAL HISTORY:Pain.COMPAR JR:noneTECHNIQUE: XR WRIST 3+ VW LEFT performed. Technical Quality: AdequateFINDINGS:Th ere are no appreciable fracture lines or subluxations. There is grossanatomic alignment. No appreciable joint effusion.IMPRESSION No appreciable fracture lines.RL: [id number]
[2022-03-06] MEDS ORDERED: LORAZEPAM 1 MG TABLET ONE (16:12)
[2022-03-06 16:26] LABS: Urine Blood Negative (Negative); Urine Glucose Negative (Negative); Urine Protein 2+ (Negative); Urine Specific Gravity >=1.030 (1.005-1.030)
[2022-03-06 16:29] LABS: Absolute Lymphocytes (CBC) 0.7 K/uL (0.7-4.9); Lymphocytes % 24.7 % (15.3-44.8); MPV 6.8 fL (7.6-11.3); RBC Red Blood Cell Count 3.85 M/uL (3.86-4.86)
[2022-03-06 16:32] LABS: Albumin 3.6 g/dL (3.4-5.0); Bilirubin Total 1.1 mg/dL (0.2-1.0); Potassium 3.3 mmol/L (3.5-5.1); Protein, Total 7.5 g/dL (6.4-8.2)
[2022-03-06] MEDS ORDERED: FOLIC ACID 1 MG, MULTIVITAMINS INJ 10 ML, THIAMINE HCL 100 MG in NA CHLORIDE 0.9% 1,000 ML IV ONE (17:00)
[2022-03-06] MEDS ORDERED: CEFTRIAXONE 1000 MG/VIAL ONE (17:11)
[2022-03-06] MEDS ORDERED: LORazepam 2 MG/ML VIAL ONE (17:58)
--- NOTE | 2022-03-06 19:17 | RAD REPORT ---
EXAM DESCRIPTION: CT - Abdomen Pelvis W Contrast - 03/06/2022 7:10 pm CLINICAL HISTORY: abd pain COMPARISON: Abdomen Pelvis W Contrast dated 01/12/2022 TECHNIQUE: Biphasic, helical CT imaging of the abdomen and pelvis was performed following 100 ml non -ionic IV contrast. No oral contrast administered. All CT scans are performed using dose optimization technique as appropriate and may include automated exposure control or mA/KV adjustment according to patient size. FINDINGS: Exam has motion degradation limitation. No suspicious findings in the lung bases. Liver size is prominent but similar to the recent December comparison. Fatty infiltration pattern is seen with no focal liver lesion. No portal vein abnormality identifiable. Gallbladder and biliary danial e are also without suspicious finding. Gallstones can be occult on CT imaging. No pancreatic or peripancreatic abnormality. No focal splenic abnormality seen. Symmetric renal function is seen with no hydronephrosis or suspicious renal mass. No pyelonephritis o r acute parenchymal process. No bladder abnormalities. No adrenal abnormalities. Uterus and ovaries s how no suspicious findings. No dilated bowel loops or bowel wall thickening. No appendicitis findings. No acute GI process identi fiable. No free air, free fluid or inflammatory stranding. No hernia, mass or bulky lymphadenopathy. No suspicious bony findings. IMPRESSION: Contrast enhanced CT abdomen and pelvis showing no acute or emergent finding. Mild diffuse fatty infiltration of the liver.
--- NOTE | 2022-03-06 19:41 | EDPHYS ---
Physician Documentation [facility] Name: Pam Restrepo Age: 41 yrs Sex: Female : 1980 Arrival Date: 03/06/2022 Time: 14:48 Bed 26 Private MD: ED Physician Justo Lay HPI: 03/06 15:46 This 41 yrs old Female presents to ER via Ambulatory with complaints of High Blood pm1 Pressure. 15:46 The patient has elevated blood pressure and discovered this at home, with a home pm1 device. Onset: The symptoms/episode began/occurred today. Modifying factors: The symptoms are aggravated by cessation of alcohol. Last drink last night. Associated signs and symptoms: Pertinent positives: vomiting, Pertinent negatives: chest pain, nausea. Severity of symptoms: in the emergency department the blood pressure is improved. The patient has not recently seen a physician. 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 - Social history:: Smoking status: Patient reports the use of cigarette tobacco products, denies chronic smoking, but will smoke occasionally, Patient uses alcohol, on a daily basis. patient/guardian reports recent binge of alcohol consumption. street drugs, cocaine. ROS: 15:46 Constitutional: Negative for fever, chills, and weight loss, Cardiovascular: Negative pm1 for chest pain, palpitations, and edema, Respiratory: Negative for shortness of breath, cough, wheezing, and pleuritic chest pain, MS/Extremity: Negative for injury and deformity, Skin: Negative for injury, rash, and discoloration. 15:46 Abdomen/GI: Positive for abdominal pain, nausea and vomiting, Negative for diarrhea. 15:46 All other systems are negative. Exam: 15:46 Constitutional: This is a well developed, well nourished patient who is awake, alert, pm1 and in no acute distress. Head/Face: Normocephalic, atraumatic. 15:46 Back: No spinal tenderness. No costovertebral tenderness. Full range of motion. Skin: Warm, dry with normal turgor. Normal color with no rashes, no lesions, and no evidence of cellulitis. MS/ Extremity: Pulses equal, no cyanosis. Neurovascular intact. Full, normal range of motion. 15:46 Cardiovascular: Exam negative for acute changes, Rate: tachycardic, Rhythm: regular, Pulses: no pulse deficits are appreciated, Heart sounds: normal. 15:46 Respiratory: Exam negative for acute changes, the patient does not display signs of respiratory distress, Respirations: normal, Breath sounds: are clear throughout. 15:46 Abdomen/GI: Inspection: abdomen appears normal, Palpation: soft, in all quadrants, moderate abdominal tenderness, in the left upper quadrant. 15:46 Neuro: Exam negative for acute changes, Orientation: is normal, Mentation: is normal, Motor: is normal, moves all fours. Vital Signs: 15:22 BP 134 / 96; Pulse 122; Resp 17; Temp 98.1; Pulse Ox 98% ; Weight 81.65 kg; Height 5 ap3 ft. 8 in. (172.72 cm); 15:47 BP 180 / 114; Pulse 98; Resp 8; Pulse Ox 100% on R/A; ab2 17:06 BP 167 / 107; Pulse 92; Resp 18; Pulse Ox 100% on R/A; ab2 17:28 BP 176 / 111; Pulse 88; Resp 16; Pulse Ox 100% on R/A; ab2 18:29 BP 154 / 97; Pulse 96; Resp 18; Pulse Ox 99% on R/A; ab2 20:02 BP 139 / 89; Pulse 99; Resp 17; Pulse Ox 100% on R/A; ab2 15:22 Body Mass Index 27.37 (81.65 kg, 172.72 cm) ap3 MDM: 15:39 Patient medically screened. pm1 19:39 Data reviewed: vital signs. Data interpreted: Pulse oximetry: on room air is 99 %. pm1 Interpretation: normal. 19:39 Counseling: I had a detailed discussion with the patient and/or guardian regarding: the pm1 historical points, exam findings, and any diagnostic results supporting the discharge/admit diagnosis, lab results, radiology results, the need for outpatient follow up, to return to the emergency department if symptoms worsen or persist or if there are any questions or concerns that arise at home. 03/06 15:45 Order name: ETOH Level; Complete Time: 16:37 pm1 03/06 15:45 Order name: CBC with Diff; Complete Time: 16:53 pm1 03/06 15:45 Order name: CMP; Complete Time: 16:37 pm1 03/06 15:45 Order name: Lipase; Complete Time: 16:37 pm1 03/06 16:26 Order name: Urine Dipstick-Ancillary; Complete Time: 16:26 EDMS 03/06 17:29 Order name: Abdomen ; Complete Time: 19:22 EDMS 03/06 15:45 Order name: Urine Dipstick-Ancillary (obtain specimen); Complete Time: 16:26 pm1 03/06 15:45 Order name: Urine Test (obtain specimen); Complete Time: 16:26 pm1 03/06 15:45 Order name: EKG; Complete Time: 15:46 pm1 03/06 15:45 Order name: EKG - Nurse/Tech; Complete Time: 16:26 pm1 Administered Medications: 16:11 Drug: Ativan (LORazepam) 1 mg Route: PO; ab2 16:26 Follow up: Response: No adverse reaction ab2 17:00 Drug: Banana Bag - (NS 0.9% 1000 ml, foLIC Acid 1 mg, Thiamine 100 mg, Multivitamin 1 ab2 amp) Route: IV; Rate: calculated rate; Site: right antecubital; 17:12 Drug: Rocephin (cefTRIAXone) 1 grams Route: IV; Rate: calculated rate; Site: right ab2 antecubital; 17:29 Follow up: Response: No adverse reaction ab2 17:56 Drug: Ativan (LORazepam) 1 mg Route: IVP; Site: right antecubital; ab2 Disposition Summary: 03/06/22 19:41 Discharge Ordered Location: Home pm1 Problem: new pm1 Symptoms: have improved pm1 Condition: Stable pm1 Diagnosis - Alcohol abuse pm1 - UTI/ Urinary tract infection, site not specified pm1 Followup: pm1 - With: Emergency Department - When: As needed - Reason: Worsening of condition Followup: pm1 - With: Private Physician - When: 2 - 3 days - Reason: Recheck today's complaints, Continuance of care, Re-evaluation by your physician Discharge Instructions: - Discharge Summary Sheet pm1 - Urinary Tract Infection, Adult pm1 - Alcohol Abuse and Nutrition pm1 - Alcohol Abuse and Dependence Information, Adult pm1 Forms: - Medication Reconciliation Form pm1 - Thank You Letter pm1 - Antibiotic Education pm1 - Prescription Opioid Use pm1 Prescriptions: - chlordiazepoxide HCl 25 mg Oral capsule - take 1 capsule by ORAL route every 6 hours for 1 day Then Day 2: Take 1 capsule pm1 every 8 hours, Day 3: Take 1 capsule every 12 hours, Day 4: Take 1 capsule at bedtime, Day 5: Take 1 capsule at bedtime; 11 capsule; Refills: 0, Product Selection Permitted - ondansetron 4 mg Oral tablet,disintegrating - place 1 tablet by TRANSLINGUAL route every 8 hours As needed; 12 tablet; pm1 Refills: 0, Product Selection Permitted - Bactrim DS 800-160 mg Oral Tablet - take 1 tablet by ORAL route every 12 hours for 10 days; 20 tablet; Refills: 0, pm1 Product Selection Permitted Addendum: 03/08/2022 18:43 Co-signature as Attending Physician, Justo Lay MD I agree with the assessment and c [place] plan of care. Signatures: Dispatcher [employer] [facility] Justo Lay MD MD cha Marinas, Patrick, LITHOPLATE MAKER LITHOPLATE MAKER pm1 Helga Kennedy RN RN ap3 Mekhi Bañuelos ab2 Corrections: (The following items were deleted from the chart) 03/06 15:27 15:25 PSHx: Appendectomy; ap3 ap3
--- NOTE | 2022-03-06 19:41 | ER ---
Nurse's Notes [facility] Name: Pam Restrepo Age: 41 yrs Sex: Female : 1980 Arrival Date: 03/06/2022 Time: 14:48 Bed 26 Private MD: Diagnosis: Alcohol abuse;UTI/ Urinary tract infection, site not specified Presentation: 03/06 15:22 Chief complaint: Patient states: she is an alcoholic, and her last drink was last ap3 night. patient states she drinks "a lot" every day. However, patient reports she is done, and wants to quit. 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 Patient reports her blood pressure was high 170s/120s at home and wanted to be evaluated for the high blood pressure and possible withdrawals. Coronavirus screen: At this time, the client does not indicate any symptoms associated with coronavirus-19. Ebola Screen: No symptoms or risks identified at this time. Initial Sepsis Screen: Does the patient meet any 2 criteria? HR > 90 bpm. Does the patient have a suspected source of infection? No. Patient's initial sepsis screen is negative. Risk Assessment: Do you want to hurt yourself or someone else? Patient reports no desire to harm self or others. Onset of symptoms was March 06, 2022. 15:22 Method Of Arrival: Ambulatory ap3 15:22 Acuity: KRISTEN 2 ap3 Triage Assessment: 15:27 General: Appears distressed, Behavior is cooperative, anxious. Pain: Complains of pain ap3 in generalized aches and pains. Neuro: Level of Consciousness is awake, alert, obeys commands, Oriented to person, place, time, situation. Cardiovascular: Patient's skin is warm and dry. Respiratory: Airway is patent Respiratory effort is even, unlabored. GI: Reports lower abdominal pain, nausea, vomiting. 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 - Social history:: Smoking status: Patient reports the use of cigarette tobacco products, denies chronic smoking, but will smoke occasionally, Patient uses alcohol, on a daily basis. patient/guardian reports recent binge of alcohol consumption. street drugs, cocaine. Screenin:29 Abuse screen: Denies threats or abuse. Nutritional screening: recent alcohol abuse. ap3 Tuberculosis screening: No symptoms or risk factors identified. Assessment: 15:45 General: Appears in no apparent distress. uncomfortable, Behavior is anxious, Smells of ab2 alcohol. Pain: Denies pain. Neuro: Level of Consciousness is awake, alert, obeys commands, Oriented to person, place, time, situation, Appropriate for age Laboratory Apparatus Glass Blower are equal bilaterally Moves all extremities. Gait is steady, Speech is normal, Facial symmetry appears normal, Intact Reports headache. Cardiovascular: No deficits noted. Denies chest pain, shortness of breath, Heart tones S1 S2 present Patient's skin is warm and dry. Respiratory: No deficits noted. Airway is patent Respiratory effort is even, unlabored, Respiratory pattern is regular, symmetrical. GI: Abdomen is round non-distended, Bowel sounds present X 4 quads. Reports lower abdominal pain, upper abdominal pain, nausea, vomiting. : No deficits noted. No signs and/or symptoms were reported regarding the genitourinary system. EENT: No deficits noted. No signs and/or symptoms were reported regarding the EENT system. Derm: No deficits noted. No signs and/or symptoms reported regarding the dermatologic system. Skin is intact, is healthy with good turgor, Skin is pink, warm \\T\\ dry. Musculoskeletal: No deficits noted. 18:30 Reassessment: Patient appears in no apparent distress at this time. Pt is sleeping ab2 comfortably. Pt denies any needs at this time. Vital Signs: 15:22 BP 134 / 96; Pulse 122; Resp 17; Temp 98.1; Pulse Ox 98% ; Weight 81.65 kg; Height 5 ap3 ft. 8 in. (172.72 cm); 15:47 BP 180 / 114; Pulse 98; Resp 8; Pulse Ox 100% on R/A; ab2 17:06 BP 167 / 107; Pulse 92; Resp 18; Pulse Ox 100% on R/A; ab2 17:28 BP 176 / 111; Pulse 88; Resp 16; Pulse Ox 100% on R/A; ab2 18:29 BP 154 / 97; Pulse 96; Resp 18; Pulse Ox 99% on R/A; ab2 20:02 BP 139 / 89; Pulse 99; Resp 17; Pulse Ox 100% on R/A; ab2 15:22 Body Mass Index 27.37 (81.65 kg, 172.72 cm) ap3 ED Course: 14:48 Patient arrived in ED. mr 15:25 Triage completed. ap3 15:27 Donavan Carlisle, NADEGE is PHCP. pm1 15:27 Justo Lay MD is Attending Physician. pm1 15:28 Arm band placed on left wrist. ap3 15:41 Mekhi Bañuelos is Primary Nurse. ab2 15:47 Patient has correct armband on for positive identification. Bed in low position. Call ab2 light in reach. Side rails up X2. 15:47 No provider procedures requiring assistance completed. ab2 16:00 Inserted saline lock: 20 gauge in right antecubital area, using aseptic technique. ab2 16:11 Lipase Sent. ab2 16:11 CMP Sent. ab2 16:11 CBC with Diff Sent. ab2 16:11 ETOH Level Sent. ab2 19:12 Abdomen In Process Unspecified. EDMS 20:03 IV discontinued, intact, bleeding controlled, No redness/swelling at site. Pressure ab2 dressing applied. Administered Medications: 16:11 Drug: Ativan (LORazepam) 1 mg Route: PO; ab2 16:26 Follow up: Response: No adverse reaction ab2 17:00 Drug: Banana Bag - (NS 0.9% 1000 ml, foLIC Acid 1 mg, Thiamine 100 mg, Multivitamin 1 ab2 amp) Route: IV; Rate: calculated rate; Site: right antecubital; 17:12 Drug: Rocephin (cefTRIAXone) 1 grams Route: IV; Rate: calculated rate; Site: right ab2 antecubital; 17:29 Follow up: Response: No adverse reaction ab2 17:56 Drug: Ativan (LORazepam) 1 mg Route: IVP; Site: right antecubital; ab2 Outcome: 19:41 Discharge ordered by . pm1 20:03 Discharged to home ambulatory, with family. ab2 20:03 Condition: good 20:03 Discharge instructions given to patient, family, Instructed on discharge instructions, follow up and referral plans. medication usage, Demonstrated understanding of instructions, follow-up care, medications, Prescriptions given X 3. 20:03 Patient left the ED. ab2 Signatures: Dispatcher [employer] GUANAKO GilmoreMyrtle anderson Patrick, DELINQUENT NOTICE MACHINE OPERATOR DELINQUENT NOTICE MACHINE OPERATOR pm1 Helga Kennedy RN RN ap3 Mekhi Bañuelos ab2 Corrections: (The following items were deleted from the chart) 15:27 15:25 PSHx: Appendectomy; ap3 ap3
[2022-03-07 02:36] VITALS: TEMP 98.1
[2022-03-07 02:43] VITALS: BP 139/89; O2SAT 100
--- NOTE | 2022-03-07 11:00 | EKG ---
Test Date: 2022-03-06 Test Time: 16:17:04 [employer] Teacher: MEASUREMENT RESULTS: Intervals: Rate: 92 GA: 136 QRSD: 74 QT: 372 QTc: 460 Sarona: P: 50 GA: 136 QRS: 48 T: -1 INTERPRETIVE STATEMENTS: Normal sinus rhythm T wave abnormality, consider inferior ischemia Abnormal ECG Compared to ECG 01/12/2022 02:27:10 T-wave abnormality now present Possible ischemia now present Sinus tachycardia no longer present Electronically Signed On 03-07-22 10:57:23 CDT by Marvin Welch
--- NOTE | 2022-03-07 11:00 | EKG ---
Test Date: 2022-03-06 Test Time: 16:17:36 Junior Data Analyst: MEASUREMENT RESULTS: Intervals: Rate: 96 VT: 136 QRSD: 74 QT: 374 QTc: 472 Wideman: P: 59 VT: 136 QRS: 48 T: 1 INTERPRETIVE STATEMENTS: Normal sinus rhythm T wave abnormality, consider inferior ischemia Abnormal ECG Compared to ECG 03/06/2022 16:17:04 No significant changes Electronically Signed On 03-07-22 10:57:22 CDT by Marvin Welch
== END 2022-03-06 20:03 | disposition home or self-care (01) ==
LOC: ER 14:39
DX: N39.0 Urinary tract infection, site not specified (principal); F10.20 Alcohol dependence, uncomplicated; F41.9 Anxiety disorder, unspecified
CPT/HCPCS: 93005 ×2; 85025; 36415; 80320; 81003; 83690; 80053; 74177; 96375; 96374; 99284; Q9967; J3411; J7030